=== PATIENT | female | born 1980 | race Caucasian/White ===

== ENCOUNTER 2020-03-21 18:56 | Emergency (ER) | payer BC, SELFPAY ==
[2020-03-21 19:08] VITALS: BP 131/60; PULSE 79; RESP 18; TEMP 36.6; O2SAT 100; BMI 37.2
[2020-03-21 19:36] LABS: Glucose, Whole Blood 421 mg/dL (60-115)
--- NOTE | 2020-03-21 19:44 | ED_ITS ---
HPI - General Adult General Chief complaint: General Medical Stated complaint: high blood sugar Time Seen by Provider: 03/21/20 19:34 Source: patient Mode of arrival: ambulatory Limitations: language barrier (Yoruba-speaking) History of Present Illness HPI narrative: Patient comes to the emergency room complaining of high blood sugar. Patient states she is on a new medication, she has not taking it because she states that it makes her blood sugar go higher than usual. Patient states earlier today she had dizziness, headache, blurry vision, at this moment patient states the dizziness and blurry vision resolved, still complaining of a mild headache. Related Data Previous Rx's Medication Instructions Recorded glimepiride 4 mg PO DAILY #30 tab 03/21/20 Allergies Allergy/AdvReac Type Severity Reaction Status Date / Time No Known Allergies Allergy Verified 03/21/20 19:11 Review of Systems Review of Systems: Constitutional : No Weight loss, No Fever, No Chills, No Night Sweats, No Fatigue, No Malaise ENT/Mouth : No Hearing loss, No Ear Pain, No Nasal Congestion, No Sinus Pain, No Hoarseness, No sore throat, No Rhinorrhea, No Swallowing Difficulty Eyes: No Eye Pain, No Swelling, No Redness, No Foreign Body, No Discharge, earlier today complaining of blurry vision Cardiovascular : No Chest Pain, No SOB, No Dyspnea on Exertion, No Orthopnea, No Edema, No Palpitations Respiratory : No Cough, No Sputum, No Wheezing, No Smoke Exposure, No Dyspnea Gastrointestinal : No Nausea, No Vomiting, No Diarrhea, No Constipation, No abdominal Pain, No Hematochezia, No Melena Genitourinary : no irregular bleeding, No Dysuria, No Urinary Frequency, No Hematuria, No Urinary Incontinence, No Urgency, No Flank Pain, No Urinary Flow Changes, No Hesitancy Musculoskeletal : No joint pain, No Myalgias, No Joint Swelling Skin : No Skin Lesions, No rash Neuro : No Weakness, No Numbness, No Paresthesias, No Loss of Consciousness, mild headache, mild dizziness which resolved Psych : No Anxiety/Panic, No Depression, No SI/HI/AH/VH, No Social Issues, Heme/Lymph: No Bruising, No Bleeding,No Lymphadenopathy Endocrine : No Polyuria, No Polydipsia, No Temperature Intolerance FOR[facility] Past Medical History Medical History (Updated 03/21/20 @ 21:54 by Maribell Nettles MD) delivery delivered Diabetes High cholesterol Social History Social History Alcohol intake: never Smoked in Last 30 Days: No Use of substances other than those prescribed or required for medical reasons: No Advance Directives: No Advance Directives Information Provided: Yes Physical Exam Vital Signs: Vital Signs: Vital Signs Temp Pulse Resp BP Pulse Ox 03/21/20 21:37 98.6 F 64 18 118/77 99 03/21/20 20:16 98.3 F 66 18 109/60 99 03/21/20 19:08 98 F 79 18 131/60 100 Body Mass Index 37.2 Appearance: Alert. Oriented X3. No acute distress. Eyes: Pupils equal, round and reactive to light. ENT: Pharynx normal. Neck: Normal inspection. Neck supple. No lymph nodes noted. No crepitus CVS: Normal heart rate and rhythm. Pulses normal. Normal S1 and S2 Respiratory: No respiratory distress. Breath sounds normal. No Wheezing. No ral es Abdomen: Soft and nontender. No rigidity. No distention. good BS x4 Skin: Skin warm and dry. Normal skin color. Normal skin turgor. Extremities: No lower extremity edema. No lower extremity edema. No Lacerations. No Rash Neuro: Oriented X 3. No motor deficit. No sensory deficit. Moving all extermities. No slurred speech. Course Course Course Narrative: Patient's blood glucose improved to the 200s, patient's headache improved but still requesting a 2nd medication, ibuprofen was provided. Patient's potassium was 3.2, patient was given p.o. potassium. Patient will follow-up with her primary care physician. Patient states that she is supposed to be taking glimepiride 4 mg tablet oral daily, patient recently moved from [place] and does not have a primary care physician. Patient ran out of her medication a few days ago. Medical Decision Making Lab Data Result diagrams: 03/21/20 20:09 03/21/20 20:43 Labs: Lab Results 03/21/20 03/21/20 03/21/20 Range/Units 19:32 20:09 20:09 WBC (4.8-10.8) X10*3/uL RBC (4.20-5.50) X10*6/uL Hgb (12.0-16.0) g/dl Hct (37-47) % MCV (80-98) fL MCH (27.0-33.0) pg MCHC (31.0-35.0) g/dl RDW (11.0-16.0) % Plt Count (160-400) X10*3/uL MPV (9.4-12.3) fL Immature Gran % (Auto) (0.0-0.4) % Neut % (Auto) (45-73) % Lymph % (Auto) (20-40) % [place] % (Auto) (2-11) % Eos % (Auto) (0-4) % Baso % (Auto) (0-2) % Lymph # (Auto) (1.2-4.9) X10*3/uL [place] # (Auto) (0.1-1.2) X10*3/uL Eos # (Auto) (0.0-0.4) X10*3/uL Baso # (Auto) (0.0-0.2) X10*3/uL Abs Immat Gran (auto) (0.00-0.03) X10*3/uL Absolute Neuts (auto) (2.0-8.3) X10*3/uL Absolute Nucleated RBC (0.0-0.012) X10*3/uL Nucleated RBC % (auto) (0.0-0.2) /100WBC Sodium Potassium Chloride Carbon Dioxide Anion Gap BUN Creatinine Estim Creat Clear Calc Estimated GFR POC Glucose 421 H* (60-115) mg/dL Random Glucose Calcium Urine Color Urine Appearance Urine pH (5.0-8.0) Ur Specific [place] (1.005-1.025) Urine Protein (NEG-TRACE) MG/DL Urine Glucose (UA) (NEG) MG/DL Urine Ketones (NEG) MG/DL Urine Blood (NEG) Urine Nitrite (NEG) Ur Leukocyte Esterase (NEG) Urine RBC (0) /HPF Urine WBC (0-4) /HPF Ur Squamous Epith Cells /LPF Urine Bacteria /LPF Urine Test NEGATIVE (NEGATIVE) Acetone, Qual Cancelled 03/21/20 03/21/20 03/21/20 Range/Units 20:09 20:09 20:09 WBC 12.7 H (4.8-10.8) X10*3/uL RBC 4.50 (4.20-5.50) X10*6/uL Hgb 13.5 (12.0-16.0) g/dl Hct 40.0 (37-47) % MCV 88.9 (80-98) fL MCH 30.0 (27.0-33.0) pg MCHC 33.8 (31.0-35.0) g/dl RDW 12.4 (11.0-16.0) % Plt Count 311 (160-400) X10*3/uL MPV 11.4 (9.4-12.3) fL Immature Gran % (Auto) 0.3 (0.0-0.4) % Neut % (Auto) 71.6 (45-73) % Lymph % (Auto) 20.5 (20-40) % [place] % (Auto) 5.5 (2-11) % Eos % (Auto) 1.9 (0-4) % Baso % (Auto) 0.2 (0-2) % Lymph # (Auto) 2.6 (1.2-4.9) X10*3/uL [place] # (Auto) 0.7 (0.1-1.2) X10*3/uL Eos # (Auto) 0.2 (0.0-0.4) X10*3/uL Baso # (Auto) 0.0 (0.0-0.2) X10*3/uL Abs Immat Gran (auto) 0.04 H (0.00-0.03) X10*3/uL Absolute Neuts (auto) 9.1 H (2.0-8.3) X10*3/uL Absolute Nucleated RBC 0.000 (0.0-0.012) X10*3/uL Nucleated RBC % (auto) 0.0 (0.0-0.2) /100WBC Sodium Cancelled Potassium Cancelled Chloride Cancelled Carbon Dioxide Cancelled Anion Gap Cancelled BUN Cancelled Creatinine Cancelled Estim Creat Clear Calc Cancelled Estimated GFR Cancelled POC Glucose (60-115) mg/dL Random Glucose Cancelled Calcium Cancelled Urine Color YELLOW Urine Appearance CLEAR Urine pH 5.5 (5.0-8.0) Ur Specific [place] 1.015 (1.005-1.025) Urine Protein NEG (NEG-TRACE) MG/DL Urine Glucose (UA) >=1000 H (NEG) MG/DL Urine Ketones NEG (NEG) MG/DL Urine Blood NEG (NEG) Urine Nitrite NEG (NEG) Ur Leukocyte Esterase NEG (NEG) Urine RBC 0 (0) /HPF Urine WBC 0 (0-4) /HPF Ur Squamous Epith Cells TRACE /LPF Urine Bacteria NONE /LPF Urine Test (NEGATIVE) Acetone, Qual 03/21/20 03/21/20 03/21/20 Range/Units 20:36 20:43 20:43 WBC (4.8-10.8) X10*3/uL RBC (4.20-5.50) X10*6/uL Hgb (12.0-16.0) g/dl Hct (37-47) % MCV (80-98) fL MCH (27.0-33.0) pg MCHC (31.0-35.0) g/dl RDW (11.0-16.0) % Plt Count (160-400) X10*3/uL MPV (9.4-12.3) fL Immature Gran % (Auto) (0.0-0.4) % Neut % (Auto) (45-73) % Lymph % (Auto) (20-40) % [place] % (Auto) (2-11) % Eos % (Auto) (0-4) % Baso % (Auto) (0-2) % Lymph # (Auto) (1.2-4.9) X10*3/uL [place] # (Auto) (0.1-1.2) X10*3/uL Eos # (Auto) (0.0-0.4) X10*3/uL Baso # (Auto) (0.0-0.2) X10*3/uL Abs Immat Gran (auto) (0.00-0.03) X10*3/uL Absolute Neuts (auto) (2.0-8.3) X10*3/uL Absolute Nucleated RBC (0.0-0.012) X10*3/uL Nucleated RBC % (auto) (0.0-0.2) /100WBC Sodium 138 Potassium 3.2 L Chloride 103 Carbon Dioxide 28 Anion Gap 10 L BUN 9 Creatinine 0.68 Estim Creat Clear Calc 121.9 Estimated GFR > 60 POC Glucose 249 H (60-115) mg/dL Random Glucose 251 H Calcium 7.9 L Urine Color Urine Appearance Urine pH (5.0-8.0) Ur Specific [place] (1.005-1.025) Urine Protein (NEG-TRACE) MG/DL Urine Glucose (UA) (NEG) MG/DL Urine Ketones (NEG) MG/DL Urine Blood (NEG) Urine Nitrite (NEG) Ur Leukocyte Esterase (NEG) Urine RBC (0) /HPF Urine WBC (0-4) /HPF Ur Squamous Epith Cells /LPF Urine Bacteria /LPF Urine Test (NEGATIVE) Acetone, Qual Negative Discharge Plan Discharge Clinical Impression: Acute hyperglycemia Patient Disposition: Home, Self-Care Instructions: Diabetic Hyperglycemia (ED), Diabetes and Exercise (ED) Additional Instructions: Please follow-up with your new primary care physician, please call to schedule an appointment Prescriptions: New glimepiride 4 mg tablet 4 mg PO DAILY Qty: 30 RF: 0
[2020-03-21] MEDS: Insulin Regular, Human 100 UNIT/ML 3 ML VIAL 10 UNIT IVPUSH (20:06)
[2020-03-21] MEDS: Acetaminophen 325 MG TABLET 650 MG PO (20:07)
[2020-03-21] MEDS: 0.9 % Sodium Chloride 1,000 ML 999 ML IVCONT (20:07)
[2020-03-21 20:16] VITALS: BP 109/60; PULSE 66; RESP 18; TEMP 36.8; O2SAT 99
[2020-03-21 20:23] LABS: MANUAL DIFF FLAG NO
[2020-03-21 20:27] LABS: Basophils Percent Auto 0.2 % (0-2); Eosinophils Absolute Auto 0.2 X10*3/uL (0.0-0.4); Eosinophils Percent Auto 1.9 % (0-4); Hemoglobin 13.5 g/dl (12.0-16.0); Imm Gran Abs Auto 0.04 X10*3/uL (0.00-0.03); Imm Gran Pct Auto 0.3 % (0.0-0.4); Lymphocytes Absolute Auto 2.6 X10*3/uL (1.2-4.9); Lymphocytes Percent Auto 20.5 % (20-40); Mean Corpuscular HGB Conc 33.8 g/dl (31.0-35.0); Mean Corpuscular Volume 88.9 fL (80-98); Mean Platelet Volume 11.4 fL (9.4-12.3); Monocytes Absolute Auto 0.7 X10*3/uL (0.1-1.2); Monocytes Percent Auto 5.5 % (2-11); Neutrophils Absolute Auto 9.1 X10*3/uL (2.0-8.3); Neutrophils Percent Auto 71.6 % (45-73); Platelet Count 311 X10*3/uL (160-400); Red Cell Distribution Width 12.4 % (11.0-16.0); White Blood Count 12.7 X10*3/uL (4.8-10.8)
[2020-03-21 20:40] LABS: Glucose, Whole Blood 249 mg/dL (60-115)
[2020-03-21 20:41] LABS: Glucose Urine UA >=1000 MG/DL (NEG); Leukocyte Esterase Urine NEG (NEG); Nitrite Urine NEG (NEG); PH 5.5 (5.0-8.0); Specific Gravity - Urine 1.015 (1.005-1.025); Urine Blood NEG (NEG); Urine Ketones NEG (NEG); Urine Protein NEG (NEG-TRACE)
[2020-03-21 20:51] LABS: Color Urine YELLOW
[2020-03-21 20:52] LABS: Appearance Urine CLEAR
[2020-03-21 20:53] LABS: UPreg QC Valid YES; Urine Pregnancy NEGATIVE (NEGATIVE)
[2020-03-21 21:05] LABS: Acetone, serum QL Negative (Negative)
[2020-03-21 21:14] LABS: RBC Urine 0 /HPF (0); Squamous Epithelial Cell Urine TRACE /LPF; WBC Urine 0 /HPF (0-4)
[2020-03-21 21:16] LABS: Anion Gap 10 (12-20); Blood Urea Nitrogen 9 mg/dL (9-16); Calcium 7.9 mg/dL (8.4-10.2); Carbon Dioxide 28 mmol/L (22-29); Chloride 103 mmol/L (96-108); Creatinine Clr Calc Pharmacy 121.9; Estimated Glomerular Filt Rate > 60; Glucose Random 251 mg/dL (60-115); Potassium 3.2 mmol/l (3.3-5.1); Sodium 138 mmol/L (135-145)
[2020-03-21 21:37] VITALS: BP 118/77; PULSE 64; RESP 18; TEMP 37; O2SAT 99
[2020-03-21] MEDS: Ibuprofen 400 MG TABLET 600 MG PO (22:00)
[2020-03-21] MEDS: Potassium Chloride Packet 20 MEQ PACKET 40 MEQ PO (22:00)
== END 2020-03-21 22:01 | disposition home or self-care (01) ==
PROVIDERS: Emergency Provider Emergency Medicine
DX: E11.65 Type 2 diabetes mellitus with hyperglycemia (principal); Z79.899 Other long term (current) drug therapy
CPT/HCPCS: 36415; 80048; 81001; 81025; 82009; 82947; 85025; 96361; 96374; 99284

== ENCOUNTER 2020-04-04 16:40 | Emergency (ER) | payer BC, SELFPAY ==
--- NOTE | 2020-04-04 18:06 | ED_ITS ---
HPI - URI/Sore Throat General Chief Complaint: General Medical Stated Complaint: covid symptoms Time Seen by Provider: 04/04/20 17:30 Source: patient Mode of arrival: ambulatory Limitations: language barrier History of Present Illness HPI Narrative: 39 y/o female presenting with headaches, nausea, muscle aches, mild sore throat, recent diarrhea for 5 days and uncontrolled glucose for the last 2 weeks. She was seen here on 03/21 for symptomatic hyperglycemia with glucose 400's. She was not taking her glimepiride 4mg because she recently moved here from [place] and does not have a PCP here. She reports compliance since last ED visit but her sugars have not improved. She states they are anythere from 160-450. Related Data Previous Rx's Medication Instructions Recorded glimepiride 4 mg PO DAILY #30 tab 03/21/20 Allergies Allergy/AdvReac Type Severity Reaction Status Date / Time No Known Allergies Allergy Verified 03/21/20 19:11 Review of Systems Review of Systems: Constitutional: No Fever, No Chills ENT/Mouth: No sore throat, No Rhinorrhea, No Swallowing Difficulty Eyes: No Eye Pain, No Swelling, No Redness Cardiovascular: No Chest Pain, No SOB, No Orthopnea, No Edema Respiratory: No Cough, No Sputum, No Wheezing, No dyspnea Gastrointestinal: + Nausea, No Vomiting, + Diarrhea, No abdominal Pain Genitourinary: No Dysuria, No Urinary Frequency, No Hematuria Musculoskeletal: No joint pain, + Myalgias Skin: No Skin Lesions, No rash Neuro: No Weakness, No Numbness, No Dizziness, + Headache Psych: No Anxiety/Panic, No Depression Heme/Lymph: No Bruising, No Lymphadenopathy Endocrine: + Polyuria, No Polydipsia PMFSH Past Medical History Attestation statement: The following information was validated with the patient. Medical History delivery delivered Diabetes High cholesterol Social History Social History Alcohol intake: never Advance Directives: No Advance Directives Information Provided: Yes Physical Exam Vital Signs: Vital Signs: Last Vital Signs Temp 96.5 F L 04/04/20 18:19 Pulse 69 04/04/20 18:19 Resp 18 04/04/20 18:19 BP 141/78 H 04/04/20 18:19 Pulse Ox 100 04/04/20 18:19 Body Mass Index 36.3 Appearance: Alert. Oriented X3. No acute distress. Eyes: Pupils equal, round and reactive to light. ENT: Pharynx normal. Neck: Normal inspection. Neck supple. CVS: Normal heart rate and rhythm. Pulses normal. Respiratory: No respiratory distress. Breath sounds normal. Abdomen: Soft and nontender. +BS x4 Skin: Skin warm and dry. Normal skin color. Normal skin turgor. No rashes. Extremities: No lower extremity edema. Neuro: Oriented X 3. No motor deficit. No sensory deficit. Course Course Course Narrative: 39 y/o female presenting with headaches, fatigue, nausea and diarrhea. She states her glucose has been elevated the last 2 weeks. She was seen here on 03/21 - she was noncompliant with her glimpiride due issues with moving here from [place]. She states she has been taking her medication as prescribed. Reevaluation(s) Reevaluation #1: Glucose here is 422 - no anion gap, acetone negative. LFTs normal and no leukocytosis. COVID, influenza and RSV negative. She has been ordered for 5 units SC insulin. Repeat POC pending. She has had a recent diarrhea and symptoms of gastroenteritis or viral infection which likely increased her glucose. This has been ongoing and she is suboptimally controlled. She has no PCP here. She has been given resources to follow up with a Primary Care doctor this week. Reevaluation #2: Glucose improved to 250. Stable for discharge. MDM - URI/Sore Throat Lab Data Result diagrams: 04/04/20 20:03 04/04/20 20:03 Labs: Lab Results 04/04/20 04/04/20 04/04/20 Range/Units 20:03 20:03 20:03 WBC 8.2 (4.8-10.8) X10*3/uL RBC 4.46 (4.20-5.50) X10*6/uL Hgb 13.3 (12.0-16.0) g/dl Hct 40.4 (37-47) % MCV 90.6 (80-98) fL MCH 29.8 (27.0-33.0) pg MCHC 32.9 (31.0-35.0) g/dl RDW 12.5 (11.0-16.0) % Plt Count 281 (160-400) X10*3/uL MPV 11.2 (9.4-12.3) fL Immature Gran % (Auto) 0.2 (0.0-0.4) % Neut % (Auto) 58.4 (45-73) % Lymph % (Auto) 30.7 (20-40) % [place] % (Auto) 6.7 (2-11) % Eos % (Auto) 3.6 (0-4) % Baso % (Auto) 0.4 (0-2) % Lymph # (Auto) 2.5 (1.2-4.9) X10*3/uL [place] # (Auto) 0.6 (0.1-1.2) X10*3/uL Eos # (Auto) 0.3 (0.0-0.4) X10*3/uL Baso # (Auto) 0.0 (0.0-0.2) X10*3/uL Abs Immat Gran (auto) 0.02 (0.00-0.03) X10*3/uL Absolute Neuts (auto) 4.8 (2.0-8.3) X10*3/uL Absolute Nucleated RBC 0.000 (0.0-0.012) X10*3/uL Nucleated RBC % (auto) 0.0 (0.0-0.2) /100WBC Sodium 136 (135-145) mmol/L Potassium 4.0 D (3.3-5.1) mmol/l Chloride 102 (96-108) mmol/L Carbon Dioxide 24 (22-29) mmol/L Anion Gap 14 (12-20) BUN 15 D (9-16) mg/dL Creatinine 0.81 (0.5-1.4) mg/dL Estim Creat Clear Calc 101.0 Estimated GFR > 60 Random Glucose 422 H* (60-115) mg/dL Calcium 9.1 D (8.4-10.2) mg/dL Total Bilirubin 0.4 (0.0-1.0) mg/dL Direct Bilirubin < 0.2 (0.0-0.5) mg/dL AST 10 (5-31) U/L ALT 16 (0-31) U/L Alkaline Phosphatase 112 (39-117) U/L Total Protein 6.9 (6.5-8.0) g/dL Albumin 3.9 (3.5-5.0) g/dL Acetone, Qual Negative (Negative) Coronavirus (PCR) NEGATIVE (Negative) Influenza Type A (PCR) NEGATIVE (Negative) Influenza Type B (PCR) NEGATIVE (Negative) RSV RNA Qual (PCR) NEGATIVE (Negative) Discharge Plan Discharge Clinical Impression: Poorly controlled diabetes mellitus, Acute viral syndrome Patient Disposition: Home, Self-Care Instructions: Diabetic Hyperglycemia (ED) Additional Instructions: You were tested for COVID-19, influenza and RSV - ALL WERE NEGATIVE. It is possible you had another mild virus causing your symptoms. You glucose was elevated again today. Your lab work showed no evidence of a diabetic emergency like diabetic ketoacidosis. You need to establish a primary care doctor for further management of your diabetes!!! You need to limit your carbohydrate and sugar intake. Drink plenty of water. No soda or juice. Continue taking your glimepiride 4 mg every day. If you develop nausea, vomiting, abdominal pain call 911 or come back to the ER for further evaluation. Prescriptions: No Action glimepiride 4 mg tablet 4 mg PO DAILY Qty: 30 RF: 0 Stand Alone Forms: Work/School Release Print Language: Citizen Of [place]
[2020-04-04 18:19] VITALS: BP 141/78; PULSE 69; RESP 18; TEMP 35.8; O2SAT 100; BMI 36.3
[2020-04-04 20:32] LABS: MANUAL DIFF FLAG NO
[2020-04-04 20:37] LABS: Basophils Percent Auto 0.4 % (0-2); Eosinophils Absolute Auto 0.3 X10*3/uL (0.0-0.4); Eosinophils Percent Auto 3.6 % (0-4); Hematocrit 40.4 % (37-47); Hemoglobin 13.3 g/dl (12.0-16.0); Imm Gran Abs Auto 0.02 X10*3/uL (0.00-0.03); Imm Gran Pct Auto 0.2 % (0.0-0.4); Lymphocytes Absolute Auto 2.5 X10*3/uL (1.2-4.9); Lymphocytes Percent Auto 30.7 % (20-40); Mean Corpuscular HGB Conc 32.9 g/dl (31.0-35.0); Mean Corpuscular Hemoglobin 29.8 pg (27.0-33.0); Mean Corpuscular Volume 90.6 fL (80-98); Mean Platelet Volume 11.2 fL (9.4-12.3); Monocytes Absolute Auto 0.6 X10*3/uL (0.1-1.2); Monocytes Percent Auto 6.7 % (2-11); Neutrophils Absolute Auto 4.8 X10*3/uL (2.0-8.3); Neutrophils Percent Auto 58.4 % (45-73); Platelet Count 281 X10*3/uL (160-400); Red Blood Count 4.46 X10*6/uL (4.20-5.50); Red Cell Distribution Width 12.5 % (11.0-16.0); White Blood Count 8.2 X10*3/uL (4.8-10.8)
[2020-04-04 20:58] LABS: Acetone, serum QL Negative (Negative)
[2020-04-04 21:10] LABS: Influenza A PCR NEGATIVE (Negative); Influenza B PCR NEGATIVE (Negative); Resp Syncy Virus RNA Qual PCR NEGATIVE (Negative); SARS COV2 PCR INHOUSE NEGATIVE (Negative)
[2020-04-04 21:12] LABS: Alanine Aminotransferase 16 U/L (0-31); Albumin Level 3.9 g/dL (3.5-5.0); Alkaline Phosphatase 112 U/L (39-117); Anion Gap 14 (12-20); Aspartate Amino Transferase 10 U/L (5-31); Bilirubin Direct < 0.2 mg/dL (0.0-0.5); Bilirubin Total 0.4 mg/dL (0.0-1.0); Blood Urea Nitrogen 15 mg/dL (9-16); Calcium 9.1 mg/dL (8.4-10.2); Carbon Dioxide 24 mmol/L (22-29); Chloride 102 mmol/L (96-108); Estimated Glomerular Filt Rate > 60; Glucose Random 422 mg/dL (60-115); Sodium 136 mmol/L (135-145); Total Protein 6.9 g/dL (6.5-8.0)
[2020-04-04] MEDS: Insulin Lispro 100 UNIT/ML 3 ML VIAL SUBCUT (21:59)
[2020-04-04 23:07] LABS: Glucose, Whole Blood 253 mg/dL (60-115)
== END 2020-04-04 23:21 | disposition home or self-care (01) ==
PROVIDERS: Physician Assistant; Emergency Provider Internal Medicine
DX: B34.9 Viral infection, unspecified (principal); M79.10 Myalgia, unspecified site; E11.65 Type 2 diabetes mellitus with hyperglycemia; Z20.828 Contact with and (suspected) exposure to other viral communicable diseases; Z79.899 Other long term (current) drug therapy
CPT/HCPCS: 0241U; 36415; 80048; 80076; 82009; 82947; 85025; 99283

== ENCOUNTER 2020-11-14 20:44 | Emergency (ER) | payer OTHER, SELFPAY ==
--- NOTE | ~2020-11-14 | XR_ITS ---
EXAMINATION: XR CHEST CLINICAL INFORMATION: Cough COMPARISON: None TECHNIQUE: 2 views of the chest were obtained. FINDINGS: No significant abnormality is noted involving the heart, lungs, mediastinum, bony thorax or soft tissues. XR/XR chest 2V IMPRESSION: Unremarkable examination.
[2020-11-14 21:28] VITALS: BP 122/66; PULSE 63; RESP 18; TEMP 36.6; O2SAT 100; BMI 37.0
[2020-11-14 22:31] LABS: Strep A Nucleic Acid Negative (Negative)
[2020-11-14 22:38] LABS: COVID-19 Test Negative (Negative); IDNOW Serial# 9DD0AD1C
--- NOTE | 2020-11-14 23:54 | ED_ITS ---
HPI - General Adult General Chief complaint: General Medical Stated complaint: cough, sore throat Time Seen by Provider: 11/14/20 23:52 Source: patient Mode of arrival: ambulatory Limitations: language barrier ( help desk supervisor used) History of Present Illness HPI narrative: Patient is a 40-year-old female with a past medical history of DM2, hypelipidemia with multiple complaints. patient states for the last few d ays she has had cold fingers, tingling up her bilateral arms, sore throat, feels like something is stuck in her throat, a little short of breath like she might have bronchitis , abdominal pain all over , diarrhea multiple times per day for the last 3 days but has not an episode since she has been in the emergency department. she denies fevers or chills nausea or vomiting. denies any changes in her bladder or bowels. Related Data Previous Rx's Medication Instructions Recorded glimepiride 4 mg PO DAILY #30 tab 03/21/20 glimepiride 4 mg PO QAM #30 tab 11/15/20 Allergies Allergy/AdvReac Type Severity Reaction Status Date / Time No Known Allergies Allergy Verified 11/14/20 21:27 Review of Systems Review of Systems: Yes all other systems are reviewed and are negative [facility] Past Medical History Medical History delivery delivered COVID-19 Diabetes Hernia High cholesterol Social History Social History Alcohol intake: never Advance Directives: No Advance Directives Information Provided: No Patient : No Physical Exam Vital Signs: Vital Signs: Last Vital Signs Temp 96.9 F 11/15/20 00:11 Pulse 57 11/15/20 00:11 Resp 18 11/15/20 00:11 BP 127/78 11/15/20 00:11 Pulse Ox 99 11/15/20 00:11 Body Mass Index 37.0 Const: General: cooperative, healthy appearing, comfortable, no acute distress and well developed Orientation/consciousness: patient oriented x3 Limitations: no limitations HENMT: Head: Yes normal to inspection Eyes: General: appearance normal, both eyes and all related structures Neck: Neck: Yes normal visual inspection and Yes full ROM Resp: Effort & Inspection: normal respiratory effort and able to speak in complete sentences Auscultation: clear to auscultation bilaterally Cardio: Rate: regular rate Rhythm: regular rhythm Heart sounds: normal S1 and S2 GI: Inspection: Yes normal to inspection Palpation (GI): Soft to palpation and Tenderness to palpation present (GI) in the epigastrum and suprapubicly Skin: General skin exam: no rashes or lesions noted Neuro: General: patient oriented x3 Extrem: General: Yes normal to inspection Course Course Course Narrative: Patient is a 40-year-old female with a past medical history of DM2, hypelipidemia with complaints of cold fingers, cough and associated chest pain, abdominal pain with multiple episodes of diarrhea over the last few days. Physical exam remarkable for tenderness to palpation of epigastric and suprapubic areas. Will get labs, troponin, EKG, UA and chest x-ray and likely discharge home. Reevaluation(s) Reevaluation #1: patient's glucose is slightly elevated at 385, patient states she has been taking her diabetes medications. Will give 1 L of LR push oral fluids and recheck glucose, likely discharge home as all other labs are normal, chest x-ray negative, EKG negative, UA negative. Time: 00:45 Reevaluation #2: Had an extensive conversation with the help desk supervisor and the patient about the patient's diabetes medications. Patient moved here to [facility] last year from [place] and stated she had some medication with her, glimepiride 4 mg. however and he emergency department note from March of 2020 states that the patient did not have any more of this medication and did not have a PCP so she was given a one-month supply of medication. Upon speaking of the patient, she states she does have medication but is unclear who she is obtaining it from because she also states she has no primary care doctor. I told her about [facility] and provided her with the phone number and I told her I would send a 1 month supply of the diabetes medication to her pharmacy but she does need to start taking it tomorrow. She says she understands and she will call for an appointment for a new PCP tomorrow. Time: 01:38 Medical Decision Making Lab Data Lab results reviewed: Yes I reviewed the patient's lab results. Result diagrams: 11/15/20 00:11 11/15/20 00:11 Labs: Lab Results 11/14/20 11/14/20 11/15/20 Range/Units 22:16 22:16 00:11 WBC 10.7 (4.8-10.8) X10*3/uL RBC 4.34 (4.20-5.50) X10*6/uL Hgb 13.3 (12.0-16.0) g/dl Hct 38.9 (37-47) % MCV 89.6 (80-98) fL MCH 30.6 (27.0-33.0) pg MCHC 34.2 (31.0-35.0) g/dl RDW 12.1 (11.0-16.0) % Plt Count 310 (160-400) X10*3/uL MPV 10.9 (9.4-12.3) fL Immature Gran % (Auto) 0.1 (0.0-0.4) % Neut % (Auto) 61.8 (45-73) % Lymph % (Auto) 28.5 (20-40) % [place] % (Auto) 6.2 (2-11) % Eos % (Auto) 3.0 (0-4) % Baso % (Auto) 0.4 (0-2) % Lymph # (Auto) 3.1 (1.2-4.9) X10*3/uL [place] # (Auto) 0.7 (0.1-1.2) X10*3/uL Eos # (Auto) 0.3 (0.0-0.4) X10*3/uL Baso # (Auto) 0.0 (0.0-0.2) X10*3/uL Abs Immat Gran (auto) 0.01 (0.00-0.03) X10*3/uL Absolute Neuts (auto) 6.6 (2.0-8.3) X10*3/uL Absolute Nucleated RBC 0.000 (0.0-0.012) X10*3/uL Nucleated RBC % (auto) 0.0 (0.0-0.2) /100WBC Sodium (135-145) mmol/L Potassium (3.3-5.1) mmol/L Chloride (96-108) mmol/L Carbon Dioxide (22-29) mmol/L Anion Gap (12-20) BUN (9-16) mg/dL Creatinine (0.5-1.4) mg/dL Estim Creat Clear Calc Estimated GFR Random Glucose (60-115) mg/dL Calcium (8.4-10.2) mg/dL Total Bilirubin (0.0-1.0) mg/dL AST (5-31) U/L ALT (0-31) U/L Alkaline Phosphatase (39-117) U/L Troponin I High Sens (<3.5-17.0) ng/L Total Protein (6.5-8.0) g/dL Albumin (3.5-5.0) g/dL Lipase (8-78) U/L Urine Color Urine Appearance Urine pH (5.0-8.0) Ur Specific [place] (1.005-1.025) Urine Protein (NEG-TRACE) MG/DL Urine Glucose (UA) (NEG) MG/DL Urine Ketones (NEG) MG/DL Urine Blood (NEG) Urine Nitrite (NEG) Ur Leukocyte Esterase (NEG) Urine RBC (0) /HPF Urine WBC (0-4) /HPF Ur Squamous Epith Cells /LPF Urine Bacteria /LPF COVID-19 (SHAWN) Negative (Negative) COVID-19 Clin Com See Note S. pyogenes GrpA REAGAN Negative (Negative) 11/15/20 11/15/20 11/15/20 Range/Units 00:11 00:11 00:11 WBC (4.8-10.8) X10*3/uL RBC (4.20-5.50) X10*6/uL Hgb (12.0-16.0) g/dl Hct (37-47) % MCV (80-98) fL MCH (27.0-33.0) pg MCHC (31.0-35.0) g/dl RDW (11.0-16.0) % Plt Count (160-400) X10*3/uL MPV (9.4-12.3) fL Immature Gran % (Auto) (0.0-0.4) % Neut % (Auto) (45-73) % Lymph % (Auto) (20-40) % [place] % (Auto) (2-11) % Eos % (Auto) (0-4) % Baso % (Auto) (0-2) % Lymph # (Auto) (1.2-4.9) X10*3/uL [place] # (Auto) (0.1-1.2) X10*3/uL Eos # (Auto) (0.0-0.4) X10*3/uL Baso # (Auto) (0.0-0.2) X10*3/uL Abs Immat Gran (auto) (0.00-0.03) X10*3/uL Absolute Neuts (auto) (2.0-8.3) X10*3/uL Absolute Nucleated RBC (0.0-0.012) X10*3/uL Nucleated RBC % (auto) (0.0-0.2) /100WBC Sodium 136 (135-145) mmol/L Potassium 4.1 (3.3-5.1) mmol/L Chloride 102 (96-108) mmol/L Carbon Dioxide 24 (22-29) mmol/L Anion Gap 14 (12-20) BUN 14 (9-16) mg/dL Creatinine 0.81 (0.5-1.4) mg/dL Estim Creat Clear Calc 101.1 Estimated GFR > 60 Random Glucose 385 H* (60-115) mg/dL Calcium 9.7 D (8.4-10.2) mg/dL Total Bilirubin 0.2 (0.0-1.0) mg/dL AST 11 (5-31) U/L ALT 13 (0-31) U/L Alkaline Phosphatase 117 (39-117) U/L Troponin I High Sens < 3.5 (<3.5-17.0) ng/L Total Protein 7.2 (6.5-8.0) g/dL Albumin 4.1 (3.5-5.0) g/dL Lipase 14 (8-78) U/L Urine Color YELLOW Urine Appearance CLEAR Urine pH 6.0 (5.0-8.0) Ur Specific [place] 1.015 (1.005-1.025) Urine Protein NEG (NEG-TRACE) MG/DL Urine Glucose (UA) >=1000 H (NEG) MG/DL Urine Ketones NEG (NEG) MG/DL Urine Blood NEG (NEG) Urine Nitrite NEG (NEG) Ur Leukocyte Esterase NEG (NEG) Urine RBC 0-2 (0) /HPF Urine WBC 0-2 (0-4) /HPF Ur Squamous Epith Cells TRACE /LPF Urine Bacteria NONE /LPF COVID-19 (SHAWN) (Negative) COVID-19 Clin Com S. pyogenes GrpA REAGAN (Negative) Imaging Data Chest x-ray: Attestation: I personally reviewed and interpreted this imaging study as follows: Radiologist's impression: [address] [id number] ReportSigned Patient: Ron ZuritaR#: [id number]: 1980Acct:[id number]/Sex: 40 / FADM Date: 11/14/20Loc: [address]: Ordering Physician: Paty Bonilla PA-C Date of Service: 11/14/20 Procedure(s): XR chest 2V Accession Number(s): [id number] cc: Paty Bonilla PA-C~ EXAMINATION: XR CHEST CLINICAL INFORMATION: Cough COMPARISON: None TECHNIQUE: 2 views of the chest were obtained. FINDINGS: No significant abnormality is noted involving the heart, lungs, mediastinum, bony thorax or soft tissues. XR/XR chest 2V IMPRESSION: Unremarkable examination. Dictated By:MATT ARIAS MDSigned By:<Electronically signed by MATT ARIAS MD in OV>11/15/20 0010 DD/ 2353TD/TT: Dolly Pusher: TRINITY ECG Data Attestation: I personally reviewed and interpreted this ECG as follows: Interpretation: [address] [id number] ReportDraft Patient: Ron ZuritaR#: [id number]: 1980Acct:[id number]/Sex: 40 / FADM Date: 11/14/20Loc: [address] Dr: Ordering Physician: Paty Bonilla PA-C Date of Service: 11/14/20 Procedure(s): ECG 12 lead EKG Accession Number(s): [id number] cc: ~ Test Reason : COUGH Blood Pressure : / mmHG Vent. Rate : 056 BPM Atrial Rate : 056 BPM P-R Int : 148 ms QRS Dur : 094 ms QT Int : 416 ms P-R-T Axes : 052 -12 015 degrees QTc Int : 401 ms Sinus bradycardia Incomplete right bundle branch block Borderline ECG No previous ECGs available Referred By: Paty Bonilla Electronically Signed By: Dictated By:Signed By: DD/ TD/TT: 11/15/205Transcriptionist: Discharge Plan Discharge Clinical Impression: Acute hyperglycemia Patient Disposition: Home, Self-Care Instructions: Type 2 Diabetes Management for Adults (ED) Additional Instructions: Today in the emergency department, all of your labs were within normal limits, your urine was negative for infection your chest x-ray was negative for acute disease your vital signs were all within normal limits. If the only abnormality was that your glucose was slightly elevated at 385 mg/dL. we gave you fluids to bring your blood sugar down. I have given you the phone number for [facility] to obtain a primary care doctor. Is very important that you follow-up with the primary care doctor to address a change in your diabetes medications. I have also sent a prescription to your pharmacy for 30 days of your existing diabetes medication. Prescriptions: New glimepiride 4 mg tablet 4 mg PO QAM Qty: 30 RF: 0 No Action glimepiride 4 mg tablet 4 mg PO DAILY Qty: 30 RF: 0 Print Language: Greek
[2020-11-15 00:11] VITALS: BP 127/78; PULSE 57; RESP 18; TEMP 36.1; O2SAT 99
[2020-11-15 00:18] LABS: MANUAL DIFF FLAG NO
[2020-11-15 00:19] LABS: Basophils Percent Auto 0.4 % (0-2); Eosinophils Absolute Auto 0.3 X10*3/uL (0.0-0.4); Hematocrit 38.9 % (37-47); Hemoglobin 13.3 g/dl (12.0-16.0); Imm Gran Abs Auto 0.01 X10*3/uL (0.00-0.03); Imm Gran Pct Auto 0.1 % (0.0-0.4); Lymphocytes Absolute Auto 3.1 X10*3/uL (1.2-4.9); Lymphocytes Percent Auto 28.5 % (20-40); Mean Corpuscular HGB Conc 34.2 g/dl (31.0-35.0); Mean Corpuscular Hemoglobin 30.6 pg (27.0-33.0); Mean Corpuscular Volume 89.6 fL (80-98); Mean Platelet Volume 10.9 fL (9.4-12.3); Monocytes Absolute Auto 0.7 X10*3/uL (0.1-1.2); Monocytes Percent Auto 6.2 % (2-11); Neutrophils Absolute Auto 6.6 X10*3/uL (2.0-8.3); Neutrophils Percent Auto 61.8 % (45-73); Platelet Count 310 X10*3/uL (160-400); Red Blood Count 4.34 X10*6/uL (4.20-5.50); Red Cell Distribution Width 12.1 % (11.0-16.0); White Blood Count 10.7 X10*3/uL (4.8-10.8)
[2020-11-15 00:39] LABS: Glucose Urine UA >=1000 MG/DL (NEG); Leukocyte Esterase Urine NEG (NEG); Nitrite Urine NEG (NEG); Specific Gravity - Urine 1.015 (1.005-1.025); Urine Blood NEG (NEG); Urine Ketones NEG (NEG); Urine Protein NEG (NEG-TRACE)
[2020-11-15 00:40] LABS: Appearance Urine CLEAR; Color Urine YELLOW
[2020-11-15 00:44] LABS: Troponin-I High Sensitivity < 3.5 ng/L (<3.5-17.0)
[2020-11-15 00:45] LABS: Alanine Aminotransferase 13 U/L (0-31); Albumin Level 4.1 g/dL (3.5-5.0); Alkaline Phosphatase 117 U/L (39-117); Anion Gap 14 (12-20); Aspartate Amino Transferase 11 U/L (5-31); Bilirubin Total 0.2 mg/dL (0.0-1.0); Blood Urea Nitrogen 14 mg/dL (9-16); Calcium 9.7 mg/dL (8.4-10.2); Carbon Dioxide 24 mmol/L (22-29); Chloride 102 mmol/L (96-108); Creatinine Clr Calc Pharmacy 101.1; Estimated Glomerular Filt Rate > 60; Glucose Random 385 mg/dL (60-115); Lipase 14 U/L (8-78); Potassium 4.1 mmol/L (3.3-5.1); Sodium 136 mmol/L (135-145); Total Protein 7.2 g/dL (6.5-8.0)
[2020-11-15 00:52] LABS: RBC Urine 0-2 /HPF (0); Squamous Epithelial Cell Urine TRACE /LPF; WBC Urine 0-2 /HPF (0-4)
[2020-11-15] MEDS: Lactated Ringers 1,000 ML 999 ML IV (01:17)
[2020-11-15 01:44] LABS: Glucose, Whole Blood 324 mg/dL (60-115)
[2020-11-15 02:35] VITALS: BP 118/79; PULSE 74; RESP 18; O2SAT 97
[2020-11-15 02:37] LABS: Glucose, Whole Blood 235 mg/dL (60-115)
== END 2020-11-15 03:00 | disposition home or self-care (01) ==
PROVIDERS: Physician Assistant; Emergency Provider Internal Medicine
DX: E11.65 Type 2 diabetes mellitus with hyperglycemia (principal); R19.7 Diarrhea, unspecified; Z79.84 Long term (current) use of oral hypoglycemic drugs; Z20.822 Contact with and (suspected) exposure to COVID-19
CPT/HCPCS: 36415; 71046; 80053; 81001; 82947; 83690; 84484; 85025; 87635; 87651; 93005; 96360; 99284

== ENCOUNTER 2024-08-31 15:05 | Emergency (ER) | payer MEDICAID, SELFPAY ==
--- NOTE | ~2024-08-31 | XR_ITS ---
CLINICAL HISTORY: pain 1 view abdomen Comparison: None Findings: No pneumoperitoneum or pneumatosis. No abnormal calcifications. No acute fractures. IMPRESSION: Normal bowel gas pattern This document has been electronically signed by: Tracey Patten MD on 08/31/2024 20:02:42
--- NOTE | ~2024-08-31 | XR_ITS ---
CLINICAL HISTORY: pain 3 views lumbar spine Comparison: None Findings: Normal alignment. No acute fractures or dislocation. No significant degenerative change. IMPRESSION: No acute findings. This document has been electronically signed by: Tracey Patten MD on 08/31/2024 20:02:02
[2024-08-31 15:28] VITALS: BP 154/86; PULSE 67; RESP 17; TEMP 36.8; O2SAT 98; BMI 37.2
--- NOTE | 2024-08-31 15:28 | ED_ITS ---
HPI - General Adult General Chief complaint: General Medical Stated complaint: Diabetic Head Pain Time Seen by Provider: 08/31/24 17:44 Source: patient Limitations: language barrier History of Present Illness ED Provider: Jaye Conte PA-C HPI narrative: 44-year-old female with a history of morbid obesity, diabetes presents with multiple complaints. Patient states she has noted her blood sugars to be elevated over the past 3 days. Associated generalized abdominal discomfort, nausea and constipation. Patient had a minimal bowel movement today. Denies abdominal distention or inability to pass flatus. No fevers. Patient also complains of ongoing right sided lumbar pain for months. Patient states her discomfort was precipitated by physical exercise, she woke the next morning with discomfort. Pain originates in right lower back, radiates down the right lower extremity. Associated paresthesia at times. Denies urinary retention, bowel incontinence or weakness of lower extremity. This is the 1st time that the patient is seeking medical attention for her pain. Related Data Previous Rx's ?Medication ?Instructions ?Recorded glimepiride 4 mg tablet 4 mg PO DAILY #30 tabs 03/21/20 glimepiride 4 mg tablet 4 mg PO QAM #30 tabs 11/15/20 glimepiride 4 mg tablet 4 mg PO BID #60 tabs 08/31/24 ketorolac 10 mg tablet 10 mg PO Q6H PRN pain #20 tabs 08/31/24 metformin 1,000 mg tablet 1,000 mg PO BID #60 tabs 08/31/24 methocarbamol 750 mg tablet 1,500 mg (2 x 750 mg) PO Q8H PRN 08/31/24 pain, moderate #20 tabs metoclopramide HCl 10 mg tablet 10 mg PO Q6H PRN nausea and 08/31/24 vomiting #12 tabs Allergies Allergy/AdvReac Type Severity Reaction Status Date / Time No Known Allergies Allergy Verified 08/31/24 15:30 Review of Systems 2 Review of Systems: Yes all other systems are reviewed and are negative Constitutional: Constitutional: Denies fatigue and Denies fever(s) Cardiovascular: Cardiovascular: Denies chest pain and Denies dyspnea Respiratory: Respiratory: Denies cough and Denies dyspnea Gastrointestinal: Gastrointestinal: Reports abdominal pain, Reports constipation, Reports nausea and Denies vomiting Genitourinary: Genitourinary: Denies dysuria Musculoskeletal: Musculoskeletal: Reports back pain, Denies muscle weakness, Denies numbness, Reports radiating pain into limb and Reports tingling Neurologic: Denies numbness and Reports tingling Endocrine: Endocrine: Denies fatigue [facility] Past Medical History Attestation statement: The following information was validated with the patient. Medical History delivery delivered COVID-19 Diabetes Hernia High cholesterol Social History Social History Alcohol intake: never Smoked in Last 30 Days: No Use of substances other than those prescribed or required for medical reasons: No Advance Directives: No Advance Directives Information Provided: No Do you have a plan to hurt others: No Plan Patient : No Physical Exam ED Vital Signs: Vital Signs - 24 hr 08/31/24 15:28 08/31/24 18:00 08/31/24 20:21 Temperature 98.3 F 97.9 F Pulse Rate 67 67 63 Respiratory Rate 17 18 16 Blood Pressure 154/86 H 132/83 137/83 Pulse Oximetry 98 98 98 Oxygen Delivery Method Room Air Room Air Room Air 08/31/24 21:44 Temperature 98.6 F Pulse Rate 70 Respiratory Rate 18 Blood Pressure 115/82 Pulse Oximetry 98 Oxygen Delivery Method Room Air BMI result Body Mass Index 37.2 Const Other: Alert Orientation/consciousness: patient oriented x3 Resp Effort & Inspection: normal respiratory effort Cardio Other: Normal peripheral perfusion GI Other: Abdomen is soft, nondistended, mild generalized tenderness to palpation without guarding Skin Other: Warm dry no rash Neuro General: patient oriented x3, gait normal, no focal motor deficits and CN's II- XI intact bilaterally Psych Other: Cooperative Course Course Course Narrative: This is a Rapid Medical Examination (RME) performed by Hailey Rivrea PA-C in triage. Full HPI, ROS, assessment and treatment plan per primary provider in the Main ED. 08/31/24 1529 KEILY Montez Hx: 44 yo female hx DM here for eval of headache, dizziness, nausea w/o vomiting, abdominal pain, right leg pain x3 days. reports glucose has read >500 for the past 3 days. reports compliance with medications. PE/vitals: well appearing Plan: labs, vbg, UA Medications Administered Discontinued Medications Generic Name Dose Route Start Last Admin Trade Name Rahul PRN Reason Stop Dose Admin Glyburide 5 mg 08/31/24 20:32 08/31/24 21:13 Glyburide 5 Mg Tablet PO 08/31/24 20:33 5 mg ONCE ONE Administration Sodium Chloride 1,000 mls @ 999 mls/hr 08/31/24 17:45 08/31/24 19:11 Ns IV 08/31/24 18:45 Infused .Q1H1M FARIHA Infusion Ketorolac Tromethamine 15 mg 08/31/24 18:23 08/31/24 18:34 Ketorolac Tromethamine 15 Mg/Ml Vial IVPUSH 08/31/24 18:24 15 mg ONCE ONE Administration Metformin HCl 1,000 mg 08/31/24 20:32 08/31/24 21:13 Metformin Hcl 1,000 Mg Tablet PO 08/31/24 20:33 1,000 mg ONCE ONE Administration Methocarbamol 1,500 mg 08/31/24 18:23 08/31/24 18:35 Methocarbamol 750 Mg Tablet PO 08/31/24 18:24 1,500 mg ONCE ONE Administration Ondansetron HCl 4 mg 08/31/24 18:23 08/31/24 18:34 Ondansetron Hcl 4 Mg/2 Ml Vial IVPUSH 08/31/24 18:24 4 mg ONCE ONE Administration Procedures Procedure Narrative Procedure Narrative: Ultrasound-guided IV 18 gauge 1-3/4 inch IV placed in right upper extremity, adequate blood return, flushes well secured with Tegaderm Medical Decision Making Medical Decision Making MDM Narrative: 44-year-old female with a history of morbid obesity, diabetes presents with multiple complaints. Patient states she has noted her blood sugars to be elevated over the past 3 days. Associated generalized abdominal discomfort, nausea and constipation. Patient had a minimal bowel movement today. Denies abdominal distention or inability to pass flatus. No fevers. Patient also complains of ongoing right sided lumbar pain for months. Patient states her discomfort was precipitated by physical exercise, she woke the next morning with discomfort. Pain originates in right lower back, radiates down the right lower extremity. Associated paresthesia at times. Denies urinary retention, bowel incontinence or weakness of lower extremity. This is the 1st time that the patient is seeking medical attention for her pain. Problem: Obesity, chronic back pain, diabetes History: Per patient I have considered the following differential diagnoses: Lumbar radiculopathy, lumbar strain, cauda equina, gastroparesis, constipation, bowel obstruction, hyperglycemia, DKA, HHS Plan: Screening labs were already obtained from triage, she is not in DKA, we will give IV fluid. Urine was obtained it was not infected. In regard to her abdominal discomfort, she is likely constipated, she has no obstructive symptoms. We will give Zofran. Lastly, and guard to her back pain, she is having radicular symptoms, without red flag signs symptoms concerning for cord compression. We will treat with Toradol and methocarbamol. Obtaining imaging of the abdomen and lumbar spine. I have independently reviewed the following tests: Labs: No leukocytosis, not anemic, no electrolyte abnormality, no gap, sugar 441, BOH 0.14, urine not infected KUB: Findings: No pneumoperitoneum or pneumatosis. No abnormal calcifications. No acute fractures. IMPRESSION: Normal bowel gas pattern X-ray lumbar spine:Findings: Normal alignment. No acute fractures or dislocation. No significant degenerative change. IMPRESSION: No acute findings. Lab Data 08/31/24 16:05 08/31/24 16:05 Labs: Lab Results 08/31/24 08/31/24 08/31/24 Range/Units 16:05 16:06 16:11 WBC 10.3 (4.8-10.8) X10*3/uL RBC 4.67 (4.20-5.50) X10*6/uL Hgb 14.2 (12.0-16.0) g/dl Hct 40.8 (37.0-47.0) % MCV 87.4 (80.0-98.0) fL MCH 30.4 (27.0-33.0) pg MCHC 34.8 (31.0-35.0) g/dl RDW 12.5 (11.0-16.0) % Plt Count 293 (160-400) X10*3/uL MPV 11.1 (9.4-12.3) fL Immature Gran % (Auto) 0.2 (0.0-0.4) % Neut % (Auto) 71.5 (45-73) % Lymph % (Auto) 20.8 (20-40) % [place] % (Auto) 5.4 (2-11) % Eos % (Auto) 1.7 (0-4) % Baso % (Auto) 0.4 (0-2) % Lymph # (Auto) 2.1 (1.2-4.9) X10*3/uL [place] # (Auto) 0.6 (0.1-1.2) X10*3/uL Eos # (Auto) 0.2 (0.0-0.4) X10*3/uL Baso # (Auto) 0.0 (0.0-0.2) X10*3/uL Abs Immat Gran (auto) 0.02 (0.00-0.03) X10*3/uL Absolute Neuts (auto) 7.4 (2.0-8.3) x10*3/uL Absolute Nucleated RBC 0.000 (0.0-0.012) X10*3/uL Nucleated RBC % (auto) 0.0 (0.0-0.2) /100WBC VBG pH 7.45 H (7.32-7.43) VBG pCO2 40 mmHg VBG pO2 58 mmHg VBG HCO3 28 H (22-26) mmol/L VBG O2 Saturation 88.0 % VBG Base Excess 4.0 mmol/L Sodium 134 L (135-145) mmol/L Potassium 4.3 (3.3-5.1) mmol/L Chloride 101 (96-108) mmol/L Carbon Dioxide 25 (22-29) mmol/L Anion Gap 12 (12-20) BUN 11 (9-16) mg/dL Creatinine 0.95 (0.5-1.4) mg/dL Estim Creat Clear Calc 83.0 Estimated GFR > 60 Random Glucose 441 H* (60-115) mg/dL Calcium 10.0 (8.4-10.2) mg/dL Magnesium 1.8 (1.6-2.6) mg/dL Total Bilirubin 0.4 (0.0-1.0) mg/dL AST 17 (5-31) U/L ALT 20 (0-31) U/L Alkaline Phosphatase 119 H (39-117) U/L Total Protein 7.6 (6.5-8.0) g/dL Albumin 4.2 (3.5-5.0) g/dL Lipase 10 (8-78) U/L Beta-Hydroxybutyrate 0.14 (0.02-0.27) mmol/L Urine Color Yellow Urine Appearance Clear Urine pH 6.0 (5.0-9.0) Ur Specific [place] >= 1.030 H (1.005-1.025) Urine Protein Negative (Neg-Trace) mg/dL Urine Glucose (UA) >=1000 H (Negative) mg/dL Urine Ketones Trace (Negative) mg/dL Urine Blood Negative (Negative) Urine Nitrite Negative (Negative) Ur Leukocyte Esterase Negative (Negative) Urine RBC 0-2 (0-2) /HPF Urine WBC 0-5 (0-5) /HPF Ur Squamous Epith Cells 0-2 (0-2) /HPF Urine Bacteria None Seen (None Seen) Hyaline Casts 0-2 (0-2) /LPF Discharge Plan Discharge Clinical Impression: Constipation, Chronic right-sided lumbar radiculopathy, Hyperglycemia Patient Disposition: Home, Self-Care Instructions: Constipation (ED), Lumbar Radiculopathy (ED), Diabetic Hyperglycemia (ED) Additional Instructions: In regard to your diabetes, you need to take your medications as directed. You need to establish primary care. I am refilling your medication for a month. Take both medications as directed. You were also found to be constipated. See home care instructions. Use [id number] Colace, this is a stool softener, twice a day, in addition use [id number] MiraLax, 3 to 4 times a day, until you begin having multiple large volume bowel movements. Use the metoclopramide as needed for nausea. Lastly, in regard to your back pain, we are treating you for sciatica or lumbar radiculopathy. See home care instructions. Exercise and weight loss are instrumental in managing your ongoing back pain. I have provided you with a list of exercises to perform at home. Take the methocarbamol as needed the, this is a muscle relaxant, it will cause drowsiness do not drive or operate machinery while taking the medication. Use the ketorolac as directed, this is the anti-inflammatory, take it with food. If your symptoms persist, the next step would be physical therapy that your primary care provider can arrange for you. Prescriptions: New glimepiride 4 mg tablet 4 mg PO BID Qty: 60 0RF Rx Instructions: administer with breakfast metformin 1,000 mg tablet 1,000 mg PO BID Qty: 60 0RF methocarbamol 750 mg tablet 1,500 mg PO Q8H PRN (Reason: pain, moderate) Qty: 20 0RF ketorolac 10 mg tablet 10 mg PO Q6H PRN (Reason: pain) Qty: 20 0RF Rx Instructions: maximum total duration of 5 days from all oral, intranasal, or parenteral formulations. The patient received an IV dose of Toradol here in the emergency room metoclopramide HCl 10 mg tablet 10 mg PO Q6H PRN (Reason: nausea and vomiting) Qty: 12 0RF No Action glimepiride 4 mg tablet 4 mg PO DAILY Qty: 30 0RF glimepiride 4 mg tablet 4 mg PO QAM Qty: 30 0RF Rx Instructions: administer with breakfast Stand Alone Forms: Work/School Release Interventions: ED Discharge Assessment Last Done: 08/31/24 21:44 Discharge Date/Time: 08/31/24 21:46 Print Language: Macedonian
[2024-08-31 16:13] LABS: MANUAL DIFF FLAG NO
[2024-08-31 16:15] LABS: Venous Blood Gas Refer to POC result
[2024-08-31 16:15] LABS: VBG HCO3 28 mmol/L (22-26); VBG pCO2 40 mmHg; VBG pH 7.45 (7.32-7.43); VBG pO2 58 mmHg
[2024-08-31 16:15] LABS: Basophils Percent Auto 0.4 % (0-2); Eosinophils Absolute Auto 0.2 X10*3/uL (0.0-0.4); Eosinophils Percent Auto 1.7 % (0-4); Hematocrit 40.8 % (37.0-47.0); Hemoglobin 14.2 g/dl (12.0-16.0); Imm Gran Abs Auto 0.02 X10*3/uL (0.00-0.03); Imm Gran Pct Auto 0.2 % (0.0-0.4); Lymphocytes Absolute Auto 2.1 X10*3/uL (1.2-4.9); Lymphocytes Percent Auto 20.8 % (20-40); Mean Corpuscular HGB Conc 34.8 g/dl (31.0-35.0); Mean Corpuscular Hemoglobin 30.4 pg (27.0-33.0); Mean Corpuscular Volume 87.4 fL (80.0-98.0); Mean Platelet Volume 11.1 fL (9.4-12.3); Monocytes Absolute Auto 0.6 X10*3/uL (0.1-1.2); Monocytes Percent Auto 5.4 % (2-11); Neutrophils Absolute Auto 7.4 x10*3/uL (2.0-8.3); Neutrophils Percent Auto 71.5 % (45-73); Platelet Count 293 X10*3/uL (160-400); Red Blood Count 4.67 X10*6/uL (4.20-5.50); Red Cell Distribution Width 12.5 % (11.0-16.0); White Blood Count 10.3 X10*3/uL (4.8-10.8)
[2024-08-31 16:15] LABS: Appearance Urine Clear; Color Urine Yellow; Glucose Urine UA >=1000 mg/dL (Negative); Leukocyte Esterase Urine Negative (Negative); Nitrite Urine Negative (Negative); Specific Gravity - Urine >= 1.030 (1.005-1.025); UMIC TRIGGER UACC YES; Urine Blood Negative (Negative); Urine Ketones Trace mg/dL (Negative); Urine Protein Negative (Neg-Trace)
[2024-08-31 16:27] LABS: Bacteria Urine None Seen (None Seen); Hyaline Casts Urine 0-2 /LPF (0-2); RBC Urine 0-2 /HPF (0-2); Squamous Epithelial Cell Urine 0-2 /HPF (0-2); WBC Urine 0-5 /HPF (0-5)
[2024-08-31 16:34] LABS: Alanine Aminotransferase 20 U/L (0-31); Albumin Level 4.2 g/dL (3.5-5.0); Alkaline Phosphatase 119 U/L (39-117); Anion Gap 12 (12-20); Aspartate Amino Transferase 17 U/L (5-31); Bilirubin Total 0.4 mg/dL (0.0-1.0); Blood Urea Nitrogen 11 mg/dL (9-16); Carbon Dioxide 25 mmol/L (22-29); Chloride 101 mmol/L (96-108); Estimated Glomerular Filt Rate > 60; Glucose Random 441 mg/dL (60-115); Lipase 10 U/L (8-78); Magnesium 1.8 mg/dL (1.6-2.6); Potassium 4.3 mmol/L (3.3-5.1); Sodium 134 mmol/L (135-145); Total Protein 7.6 g/dL (6.5-8.0)
[2024-08-31 18:00] VITALS: BP 132/83; PULSE 67; RESP 18; O2SAT 98
[2024-08-31] MEDS: 0.9 % Sodium Chloride 1,000 ML 999 ML IV (18:20)
[2024-08-31] MEDS: ondansetron HCL 4 MG/2 ML VIAL IVPUSH (18:34)
[2024-08-31] MEDS: Ketorolac Tromethamine 15 MG/ML VIAL IVPUSH (18:34)
[2024-08-31] MEDS: methocarbamoL 750 MG TABLET 1500 MG PO (18:35)
[2024-08-31 18:46] LABS: Beta-Hydroxybutyrate 0.14 mmol/L (0.02-0.27)
--- OUTSIDE RECORDS SUMMARY | 2024-08-31 18:53 | XMS_ITS ---
Author Organization [facility] Address [address] [place] [address] Care Team Providers Care Wire Walker Name Role Phone SOFÍA STONE Primary Care Provider [phone] ARSEN FUNG [phone] Social History Sex Assigned At : Social History Observation Description Sex Assigned At Female Encounters Encounter Location Date Provider Diagnosis [facility] [address] [facility] [address] [place] [address] 07/03/2024 ARSEN FUNG Plan Of Treatment No Information Progress Notes * STEFFANIE GALLEGOSOB:1 07/16/1979 (44 yo F)Acc No.[id number]:07/03/2024 Progress Notes Patient:?RAMSEY GALLEGOS Provider:?ARSEN BUCKLEY MD :1980???Age:44 Y???Sex:Female D ate:07/03/2024 Address:[address], [place], [id number] Pcp:SOFÍA BRUNO Structured Data:[place] : No Subjective: * Chief Complaints: * ??? * Medical History:? Objective: * Vitals:? Assessment: Plan: * Treatment: * Billing Information: * Visit Code:? * Procedure Codes:? * Electronic signature of PRERNA FUNG , [id number] on 08/31/2024 at 06:51 PM BOT Sign off status: Pending * Provider:?ARSEN BUCKLEY MD Jake e:?07/03/2024 Generated for Kristopher weldon/Alexey/Sruthi on:?08/31/2024 06:51 PM BOT
--- OUTSIDE RECORDS SUMMARY | 2024-08-31 18:53 | XMS_ITS ---
Author Organization [facility] Address [address] [place] [address] Care Team Providers Care Datastage Developer Name Role Phone SOFÍA STONE Primary Care Provider [phone] ZULEMA JOHANSEN [phone] REASON FOR VISIT PAP Social History Sex Assigned At : Social History Observation Description Sex Assigned At Female Encounters Encounter Location Date Provider Diagnosis [facility] [address] [facility] [place] [address] 03/12/2024 ZULEMA VALDES Plan Of Treatment No Information Progress Notes * STEFFANIE GALLEGOSOB:1 07/16/1979 (44 yo F)Acc No.[id number]:03/12/2024 Progress Notes Patient:?RAMSEY GALLEGOS Provider:?ZULEMA VALDES :1980???Age:43 Y???Sex:Female D ate:03/12/2024 Address:[address], [place], [id number] Pcp:SOFÍA BRUNO Structured Data:[place] : No Subjective: * Chief Complaints: * ???1. PAP. * Medical History:? Objective: * Vitals:? Assessment: Plan: * Treatment: * Billing Information: * Visit Code:? * Procedure Codes:? * Electronic signature of ZULEMA VALDES MD, [id number] on 08/31/2024 at 06:51 PM BOT Sign off status: Pending * Provider:?ZULEMA VALDES Date:? Generated for Kristopher weldon/Alexey/Sruthi on:?08/31/2024 06:51 PM BOT
--- OUTSIDE RECORDS SUMMARY | 2024-08-31 18:53 | XMS_ITS | Patient Health Record ---
Author Organization [facility] [employer] Address [address] [place] [address] Care Team Providers Care Rod Cup Filler Name Role Phone HALEY STONEJoshua Primary Care Provider [phone] ENRIQUE BUCKLEY Unavailable [phone] ARSEN FUNG Unavailable [phone] ZULEMA JOHANSEN Unavailable [phone] Allergies No Known Allergies Results Component Value Reference Range Notes Thin prep (Not yet reviewed by provider) Interpretation: Performing Lab: Notes/Report: Pap Smear NILM Reason For Referral No Information Medications Medication SIG (Take, Route, Frequency, Duration) Notes Start Date End Date Status Omeprazole 40 MG 1 capsule 30 minutes before morning meal Orally Once a day for 30 days 07/14/2021 Active Gabapentin 100 MG 1 capsule Orally Onc e a day for 30 days 04/17/2023 Active Tradjenta 5 MG 1 tablet Orally Once a day for 30 days E11.65 hgbA1c 10.0 Active Lantus 100 UNIT/ML 23 units in the evening Subcutaneous Once a day for 44 days Active Insulin Syringe 30G X 5/16 1 ML as directed sc daily for 30 days Active metFORMIN HCl 1000 MG 1 tablet with a me al Orally TWICE A DAY for 30 days 04/16/2022 Active Glimepiride 4 MG 1 tablet with breakfast or the first main meal of the day and afternoon meal Orally TWICE A DAY for 30 days 07/14/2021 Active Lisinopril 2.5 MG 1 tablet Orally Once a day for 30 days 07/14/2021 Active Simvastatin 20 MG 1 tablet in the evening Orally Once a day for 30 day(s) 07/14/2021 Active Aspirin 81 MG 1 tablet Orally Once a day for 30 days 12/04/2022 Active Immunizations Vaccine Route Administration Date Status Comme nts INFLUENZA FLUARIX (317) IM Intramuscular 04/17/2023 Admini stered Social History Tobacco Use: Social History Observation Description Date Details (start date - stop date) Never Smoker NA - NA Sex Assigned At : Social History Observation Description Sex Assigned At Female Tobacco Use/Smoking Question Answer Notes Tobacco use: nonsmoker Alcohol Screen (Audit-C) Question Answer Notes Did you have a drink containing alcohol in the p ast year? No Points 0 Interpretation Negative Sexual History Question Answer Notes Had sex in the past 12 months (vaginal, oral, or anal)? Yes SBIRT (2018 Edition) Question Answer Notes Patient refused/declined SBIRT screening at this time? No 1. How often do you have a drink containing alco hol? Never 3. How often do you have five or more drinks on one occasion? Never SCORE 0 Interpretation Negative How many times in the past y ear have you used an illegal drug or used a prescription medication for non-medical reasons? 0 Total Count 0 Interpretation Negative Problems Problem Type SNOMED Code ICD Code Onset Dates Problem Status W/U Status Risk Notes Problem Polyneuropathy due to type 2 diabetes mellitus (969053003) Type 2 diabetes mellitus with diabetic polyneuropathy (E11.42) Active confirmed Problem 42136600 Type 2 diabetes mellitus with hyperglycemia (E11.65) Active confirmed Problem Type II diabetes mellitus without complication (607062729) Type 2 diabetes mellitus without complications (E11.9) Active confirmed Problem Obesity (261787334) Other obesit y (E66.8) Active confirmed Problem Hyperlipidemia (29621495) Hyperlipidemia, unspecified (E78.5) Active confirmed Problem Gastro-esophageal reflux disease without esophagitis (510440480) Gastro-esophageal reflux disease without esophagitis (K21.9) Active confirmed Problem Gastroduodenitis (879909907) Gastritis, unspecified, without bleeding (K29.70) Active confirmed Problem 520918929 long-term (current) use of insulin (Z79.4) Active confirmed Problem 4687536 Diabetes mellitu s due to underlying condition with mild nonproliferative diabetic retinopathy without macular edema, bilateral (E08.3293) Active confirmed Problem 88849165 Type 2 diabetes mellitus with proliferative diabetic retinopathy with macular edema, 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) Active confirmed Problem 48236305 Other specified diabetes mellitus with proliferative diabetic retinopathy with macular edema, right eye (E13.3511) Active confirmed Problem 453774102 Body mass index [BMI] 35.0-35.9, adult (Z68.35) Active confirmed Problem 479917172 Body mass index [BMI] 36.0-36.9, adult (Z68.36) Active confirmed Problem 11632942 Dyspareunia in female (N94.10) Active confirmed Problem Type II diabetes mellitus without complication (917271926) Controlled type 2 diabetes mellitus without complication, without long-term current use of insulin (E11.9) Active confirmed Vital Signs Heart Rate 75 /min 01/29/2024 SE RECIBE PACIE NTE DE ALERTA, ORIENTADO EN TIEMPO LUGAR Y PERSONA. REFIERE PAP . SE COMPLETA HISTORIAL MEDICO Y SE JENNIFER SIGNOS VITALES ADJUNTADOS EN TABLA PARA REFERENCIA. PACIENTE EN JOSE DE ESPERA PARA EVALUACION MEDICA. Monica Campos 01/29/2024 10:43:21 AM BOT > Temperature 97.5 degrees Fahrenheit 01/29/2024 SE R ECIBE PACIENTE DE ALERTA, ORIENTADO EN TIEMPO LUGAR Y PERSONA. REFIERE PAP . SE COMPLETA HISTORIAL MEDICO Y SE JENNIFER SIGNOS VITALES ADJUNTADOS EN TABLA PARA REFERENCIA. PACIENTE EN JOSE DE ESPERA PARA EVALUACION MEDICA. Monica Campos 01/29/2024 10:43:21 AM BOT > Respiratory Rate 19 /min 01/29/2024 SE RECIBE P ACIENTE DE ALERTA, ORIENTADO EN TIEMPO LUGAR Y PERSONA. REFIERE PAP . SE COMPLETA HISTORIAL MEDICO Y SE JENNIFER SIGNOS VITALES ADJUNTADOS EN TABLA PARA REFERENCIA. PACIENTE EN JOSE DE ESPERA PARA EVALUACION MEDICA. Monica Campos 01/29/2024 10:43:21 AM BOT > Oximetry 98 % 01/29/2024 SE RECIBE PACIE NTE DE ALERTA, ORIENTADO EN TIEMPO LUGAR Y PERSONA. REFIERE PAP . SE COMPLETA HISTORIAL MEDICO Y SE JENNIFER SIGNOS VITALES ADJUNTADOS EN TABLA PARA REFERENCIA. PACIENTE EN JOSE DE ESPERA PARA EVALUACION MEDICA. Monica Campos 01/29/2024 10:43:21 AM BOT > Blood pressure diastolic 85 mm Hg 01/29/2024 SE RECIBE PACIENTE DE ALERTA, ORIENTADO EN TIEMPO LUGAR Y PERSONA. REFIERE PAP . SE COMPLETA HISTORIAL MEDICO Y SE JENNIFER SIGNOS VITALES ADJUNTADOS EN TABLA PARA REFERENCIA. PACIENTE EN JOSE DE ESPERA PARA EVALUACION MEDICA. Saumya Camposlis 01/29/2024 10:43:21 AM BOT > Weight-kg 91.63 kg 01/29/2024 SE RECIBE PACIE NTE DE ALERTA, ORIENTADO EN TIEMPO LUGAR Y PERSONA. REFIERE PAP . SE COMPLETA HISTORIAL MEDICO Y SE JENNIFER SIGNOS VITALES ADJUNTADOS EN TABLA PARA REFERENCIA. PACIENTE EN JOSE DE ESPERA PARA EVALUACION MEDICA. Monica Campos 01/29/2024 10:43:21 AM BOT > Height 63 in 01/29/2024 SE RECIBE PACIE NTE DE ALERTA, ORIENTADO EN TIEMPO LUGAR Y PERSONA. REFIERE PAP . SE COMPLETA HISTORIAL MEDICO Y SE JENNIFER SIGNOS VITALES ADJUNTADOS EN TABLA PARA REFERENCIA. PACIENTE EN JOSE DE ESPERA PARA EVALUACION MEDICA. Monica Campos 01/29/2024 10:43:21 AM BOT > Blood pressure systolic 129 mm Hg 01/29/2024 SE R ECIBE PACIENTE DE ALERTA, ORIENTADO EN TIEMPO LUGAR Y PERSONA. REFIERE PAP . SE COMPLETA HISTORIAL MEDICO Y SE JENNIFER SIGNOS VITALES ADJUNTADOS EN TABLA PARA REFERENCIA. PACIENTE EN JOSE DE ESPERA PARA EVALUACION MEDICA. Trevor Loo Lucianogarcía 01/29/2024 10:43:21 AM BOT > Weight 202.0 lbs 01/29/2024 SE RECIBE PACIE NTE DE ALERTA, ORIENTADO EN TIEMPO LUGAR Y PERSONA. REFIERE PAP . SE COMPLETA HISTORIAL MEDICO Y SE JENNIFER SIGNOS VITALES ADJUNTADOS EN TABLA PARA REFERENCIA. PACIENTE EN JOSE DE ESPERA PARA EVALUACION MEDICA. Trevor EzeMonica 01/29/2024 10:43:21 AM BOT > BMI 35.78 kg/m2 01/29/2024 SE RECIBE PACIE NTE DE ALERTA, ORIENTADO EN TIEMPO LUGAR Y PERSONA. REFIERE PAP . SE COMPLETA HISTORIAL MEDICO Y SE JENNIFER SIGNOS VITALES ADJUNTADOS EN TABLA PARA REFERENCIA. PACIENTE EN JOSE DE ESPERA PARA EVALUACION MEDICA. Monica Campos 01/29/2024 10:43:21 AM BOT > Encounters Encounter Location Date Provider Diagnosis [facility] [address] [place] [address] 01/29/2024 ZULEMA VALDES Encounter for cervical Pap smear with pelvic exam Z01.419 [facility] [place] [address] [place] [address] 02/07/2024 ZULEMA VALDES Counseling and coordination of care Z71.89 Assessments Encounter Date Diagnosis (ICD Code) Assessment Notes Treatment Notes Treatment Clinical Notes Section Notes 01/29/2024 Encounter for cervical Pap smear with pelvic exam (ICD-10 - Z01.419) 02/07/2024 Counseling and coordination of care (ICD-10 - Z71.89) Plan Of Treatment Pending Test Test Name Order Date Ultrasound : Abdomen and Pelvis 03/28/20 22 Hemoglobin A1c 07/10/2022 Hemoglobin A1c 12/04/2022 Urinalysis, Complete 09/19/2021 Cortisol 09/19/2021 TSH 07/10/2022 TSH 12/04/2022 CBC With Differential/Platelet 3 CBC With Differential/Platelet 3 CBC With Differential/Platelet 2 Occult Blood, Stool, Guaiac 09/19/2021 Vitamin D, 25-Hydroxy 09/19/2021 Vitamin D, 25-Hydroxy 03/28/2022 Hgb A1c with MBG Estimation 09/19/2021 Microalbumin, 24 hr Urine 03/28/2022 Occult Blood, Fecal, IA 12/04/2022 TSH+Free T4 09/19/2021 Lipid Panel 09/19/2021 Lipid Panel 12/04/2022 Lipid Panel 07/10/2022 Comp. Metabolic Panel (14) 07/10/2022 Comp. Metabolic Panel (14) 12/04/2022 Comp. Metabolic Panel (14) 08/16/2021 Comp. Metabolic Panel (14) 09/19/2021 HIV 12/04/2022 MAMMOGRAM, SCREENING 03/28/2022 Urine Culture and Sensitivity 04/16/2022 Urinalysis 07/10/2022 Urinalysis 12/04/2022 Ultrasound : Transvaginal 03/28/2022 Mammogram (Bilateral), Diagnostic comput er aided 04/16/2022 Thin prep 01/29/2024 COVID - 19 SARS ANTIGEN LE 04/16/2022 MICROALBUMIN RANDOM 12/04/2022 MICROALBUMIN RANDOM 07/10/2022 Insurance Providers Payer Name Payer Address Payer Phone Subscriber Number Group Number Insured Name Patient Relationship to Insured Coverage Start Date Coverage End Date [employer] [address] [address] [place], [place] [id number] AISSATOU GALLEGOS Self - patient is the insured 3 8 Medical (General) History Medical History History ICD Code DIABETES NEUROPATIA COLESTEROL Surgical History Surgery Date(Month/Year) CESAREA (3) HERNIA
[2024-08-31 20:21] VITALS: BP 137/83; PULSE 63; RESP 16; TEMP 36.6; O2SAT 98
--- NOTE | 2024-08-31 20:52 | PC.NURSE ---
Awaiting med from pharm.
[2024-08-31] MEDS: metFORMIN HCl 1,000 MG TABLET 1000 MG PO (21:13)
[2024-08-31] MEDS: glyBURIDE 5 MG TABLET PO (21:13)
[2024-08-31 21:44] VITALS: BP 115/82; PULSE 70; RESP 18; TEMP 37; O2SAT 98
== END 2024-08-31 21:46 | disposition home or self-care (01) ==
PROVIDERS: Physician Assistant Medical; Emergency Provider Emergency Medicine
DX: M54.16 Radiculopathy, lumbar region (principal); K59.00 Constipation, unspecified; E11.65 Type 2 diabetes mellitus with hyperglycemia; R51.9 Headache, unspecified; R10.2 Pelvic and perineal pain; R11.0 Nausea; Z79.899 Other long term (current) drug therapy; Z79.84 Long term (current) use of oral hypoglycemic drugs
CPT/HCPCS: 36415; 72100; 74018; 80053; 81001; 82010; 82803; 83690; 83735; 85025; 96361; 96374; 96375; 99284; J1885; J2405

== ENCOUNTER → 2024-08-31 18:23 | Outpatient (BNV) | payer SELFPAY | PROVIDERS: Emergency Provider Emergency Medicine; Visit Provider Student in an Organized Health Care Education/Training Program | DX: M54.50 Low back pain, unspecified (principal); R10.9 Unspecified abdominal pain | CPT/HCPCS: 72100; 74018 ==

== ENCOUNTER 2024-09-15 16:30 | Emergency (ER) | payer MEDICAID, SELFPAY ==
--- NOTE | ~2024-09-15 | XR_ITS ---
CLINICAL HISTORY: cough 1 view chest x-ray Comparison: None Findings: No consolidation, pneumothorax, or pleural effusion. Mild right infrahilar atelectasis/pneumonitis. Cardiac silhouette at the upper limits of normal. No acute fracture. IMPRESSION: Mild right infrahilar atelectasis/pneumonitis. This document has been electronically signed by: Lio Singh MD on 09/15/2024 19:46:26
[2024-09-15 16:44] VITALS: BP 142/75; PULSE 76; RESP 16; TEMP 36.8; O2SAT 98; BMI 35.8
[2024-09-15 18:15] LABS: Glucose, Whole Blood 52 mg/dL (60-115)
[2024-09-15 18:15] LABS: Glucose, Whole Blood 74 mg/dL (60-115)
[2024-09-15 18:17] LABS: Influenza A PCR NEGATIVE (Negative); Influenza B PCR NEGATIVE (Negative); Resp Syncy Virus RNA Qual PCR NEGATIVE (Negative); SARS COV2 PCR INHOUSE NEGATIVE (Negative)
[2024-09-15 18:56] LABS: Glucose, Whole Blood 109 mg/dL (60-115)
[2024-09-15 19:31] VITALS: BP 146/88; PULSE 78; RESP 16; TEMP 36.8; O2SAT 99
[2024-09-15] MEDS: Dextrose 50 % 25 GM/50 ML SYRINGE IVPUSH (19:39)
[2024-09-15 19:46] LABS: MANUAL DIFF FLAG NO
[2024-09-15 19:51] LABS: Basophils Percent Auto 0.3 % (0-2); Eosinophils Absolute Auto 0.3 X10*3/uL (0.0-0.4); Hematocrit 35.5 % (37.0-47.0); Imm Gran Abs Auto 0.02 X10*3/uL (0.00-0.03); Imm Gran Pct Auto 0.2 % (0.0-0.4); Lymphocytes Absolute Auto 2.1 X10*3/uL (1.2-4.9); Lymphocytes Percent Auto 20.3 % (20-40); Mean Corpuscular HGB Conc 33.8 g/dl (31.0-35.0); Mean Corpuscular Hemoglobin 30.6 pg (27.0-33.0); Mean Corpuscular Volume 90.6 fL (80.0-98.0); Mean Platelet Volume 10.5 fL (9.4-12.3); Monocytes Absolute Auto 0.9 X10*3/uL (0.1-1.2); Monocytes Percent Auto 8.4 % (2-11); Neutrophils Absolute Auto 6.8 x10*3/uL (2.0-8.3); Neutrophils Percent Auto 67.8 % (45-73); Platelet Count 261 X10*3/uL (160-400); Red Blood Count 3.92 X10*6/uL (4.20-5.50); Red Cell Distribution Width 12.8 % (11.0-16.0); White Blood Count 10.1 X10*3/uL (4.8-10.8)
[2024-09-15 20:07] LABS: Alanine Aminotransferase 21 U/L (0-31); Albumin Level 3.8 g/dL (3.5-5.0); Alkaline Phosphatase 71 U/L (39-117); Anion Gap 12 (12-20); Aspartate Amino Transferase 17 U/L (5-31); Bilirubin Total 0.2 mg/dL (0.0-1.0); Blood Urea Nitrogen 11 mg/dL (9-16); Calcium 9.8 mg/dL (8.4-10.2); Carbon Dioxide 24 mmol/L (22-29); Chloride 107 mmol/L (96-108); Creatinine Clr Calc Pharmacy 135.6; Estimated Glomerular Filt Rate > 60; Glucose Random 144 mg/dL (60-115); Magnesium 1.8 mg/dL (1.6-2.6); Potassium 3.7 mmol/L (3.3-5.1); Sodium 139 mmol/L (135-145); Total Protein 6.8 g/dL (6.5-8.0)
[2024-09-15 20:10] LABS: HCG Quantitative < 2 mIU/mL
[2024-09-15 20:31] LABS: Glucose, Whole Blood 196 mg/dL (60-115)
--- NOTE | 2024-09-15 22:38 | ED.GENADULT ---
HPI - General Adult General Chief complaint: Upper Respiratory Symptoms Stated complaint: Congestion/Headache Time Seen by Provider: 09/15/24 19:08 Source: patient History of Present Illness ED Provider: Jaye Conte PA-C HPI narrative: 44-year-old female with a history of diabetes presents with cough and cold symptoms x3 days. Cough is dry nonproductive, associated subjective fevers. Denies tobacco use or shortness of breath. Related Data Previous Rx's ?Medication ?Instructions ?Recorded glimepiride 4 mg tablet 4 mg PO DAILY #30 tabs 03/21/20 glimepiride 4 mg tablet 4 mg PO QAM #30 tabs 11/15/20 glimepiride 4 mg tablet 4 mg PO BID #60 tabs 08/31/24 ketorolac 10 mg tablet 10 mg PO Q6H PRN pain #20 tabs 08/31/24 metformin 1,000 mg tablet 1,000 mg PO BID #60 tabs 08/31/24 methocarbamol 750 mg tablet 1,500 mg (2 x 750 mg) PO Q8H PRN 08/31/24 pain, moderate #20 tabs metoclopramide HCl 10 mg tablet 10 mg PO Q6H PRN nausea and 08/31/24 vomiting #12 tabs Allergies Allergy/AdvReac Type Severity Reaction Status Date / Time No Known Allergies Allergy Verified 09/15/24 16:45 Review of Systems Review of Systems: Yes all other systems are reviewed and are negative Constitutional: Constitutional: Denies fatigue and Reports fever(s) Cardiovascular: Cardiovascular: Denies chest pain and Denies dyspnea Respiratory: Respiratory: Denies chest congestion, Reports cough and Denies dyspnea Endocrine: Endocrine: Denies fatigue [facility] Past Medical History Attestation statement: The following information was validated with the patient. Medical History delivery delivered COVID-19 Diabetes Hernia High cholesterol Social History Social History Alcohol intake: never Advance Directives: No Advance Directives Information Provided: No Do you have a plan to hurt others: No Plan Physical Exam ED Vital Signs: Vital Signs - 24 hr 09/15/24 16:44 09/15/24 19:31 Temperature 98.3 F 98.3 F Pulse Rate 76 78 Respiratory Rate 16 16 Blood Pressure 142/75 H 146/88 H Pulse Oximetry 98 99 Oxygen Delivery Method Room Air Room Air BMI result Body Mass Index 35.8 Const Other: Alert Orientation/consciousness: patient oriented x3 Resp Effort & Inspection: normal respiratory effort Cardio Other: Normal peripheral perfusion Skin Other: Warm dry no rash Neuro General: patient oriented x3, gait normal, no focal motor deficits and CN's II-XI intact bilaterally Psych Other: Cooperative Medications Administered Discontinued Medications Generic Name Dose Route Start Last Admin Trade Name Freq PRN Reason Stop Dose Admin Dextrose 25 gm 09/15/24 19:09 09/15/24 19:39 Dextrose 50 % 25 Gm/50 Ml Syringe IVPUSH 09/15/24 19:10 25 gm ONCE ONE Administration Medical Decision Making Medical Decision Making [facility] Narrative: 44-year-old female with a history of diabetes presents with cough and cold symptoms x3 days. Cough is dry nonproductive, associated subjective fevers. Denies tobacco use or shortness of breath. Problem: Diabetes History: Per patient I have considered the following differential diagnoses: Bronchitis, pneumonia, viral syndrome Plan: Screening labs including viral panel and chest x-ray obtained from triage everything is negative. Patient was incidentally found to be hypoglycemic, she is a new diabetic, she does not manage her blood sugars appropriately. I have advised she needs to check them throughout the day in between meals. She needs to follow up with primary care I have independently reviewed the following tests: Labs: No leukocytosis, not anemic, no electrolyte abnormality, viral panel negative Chest x-ray:MPRESSION: Mild right infrahilar atelectasis/pneumonitis. Lab Data 09/15/24 19:39 09/15/24 19:39 Labs: Lab Results 09/15/24 09/15/24 09/15/24 Range/Units 17:27 17:30 17:45 WBC (4.8-10.8) X10*3/uL RBC (4.20-5.50) X10*6/uL Hgb (12.0-16.0) g/dl Hct (37.0-47.0) % MCV (80.0-98.0) fL MCH (27.0-33.0) pg MCHC (31.0-35.0) g/dl RDW (11.0-16.0) % Plt Count (160-400) X10*3/uL MPV (9.4-12.3) fL Immature Gran % (Auto) (0.0-0.4) % Neut % (Auto) (45-73) % Lymph % (Auto) (20-40) % [place] % (Auto) (2-11) % Eos % (Auto) (0-4) % Baso % (Auto) (0-2) % Lymph # (Auto) (1.2-4.9) X10*3/uL [place] # (Auto) (0.1-1.2) X10*3/uL Eos # (Auto) (0.0-0.4) X10*3/uL Baso # (Auto) (0.0-0.2) X10*3/uL Abs Immat Gran (auto) (0.00-0.03) X10*3/uL Absolute Neuts (auto) (2.0-8.3) x10*3/uL Absolute Nucleated RBC (0.0-0.012) X10*3/uL Nucleated RBC % (auto) (0.0-0.2) /100WBC Sodium (135-145) mmol/L Potassium (3.3-5.1) mmol/L Chloride (96-108) mmol/L Carbon Dioxide (22-29) mmol/L Anion Gap (12-20) BUN (9-16) mg/dL Creatinine (0.5-1.4) mg/dL Estim Creat Clear Calc Estimated GFR POC Glucose 52 L* 74 (60-115) mg/dL Random Glucose (60-115) mg/dL Calcium (8.4-10.2) mg/dL Magnesium (1.6-2.6) mg/dL Total Bilirubin (0.0-1.0) mg/dL AST (5-31) U/L ALT (0-31) U/L Alkaline Phosphatase (39-117) U/L Total Protein (6.5-8.0) g/dL Albumin (3.5-5.0) g/dL Beta HCG, Quant mIU/mL Influenza Type A (PCR) NEGATIVE (Negative) Influenza Type B (PCR) NEGATIVE (Negative) RSV RNA Qual (PCR) NEGATIVE (Negative) SARS-CoV-2 RNA (RT-PCR) NEGATIVE (Negative) 09/15/24 09/15/24 09/15/24 Range/Units 18:52 19:39 20:27 WBC 10.1 (4.8-10.8) X10*3/uL RBC 3.92 L (4.20-5.50) X10*6/uL Hgb 12.0 (12.0-16.0) g/dl Hct 35.5 L (37.0-47.0) % MCV 90.6 (80.0-98.0) fL MCH 30.6 (27.0-33.0) pg MCHC 33.8 (31.0-35.0) g/dl RDW 12.8 (11.0-16.0) % Plt Count 261 (160-400) X10*3/uL MPV 10.5 (9.4-12.3) fL Immature Gran % (Auto) 0.2 (0.0-0.4) % Neut % (Auto) 67.8 (45-73) % Lymph % (Auto) 20.3 (20-40) % [place] % (Auto) 8.4 (2-11) % Eos % (Auto) 3.0 (0-4) % Baso % (Auto) 0.3 (0-2) % Lymph # (Auto) 2.1 (1.2-4.9) X10*3/uL [place] # (Auto) 0.9 (0.1-1.2) X10*3/uL Eos # (Auto) 0.3 (0.0-0.4) X10*3/uL Baso # (Auto) 0.0 (0.0-0.2) X10*3/uL Abs Immat Gran (auto) 0.02 (0.00-0.03) X10*3/uL Absolute Neuts (auto) 6.8 (2.0-8.3) x10*3/uL Absolute Nucleated RBC 0.000 (0.0-0.012) X10*3/uL Nucleated RBC % (auto) 0.0 (0.0-0.2) /100WBC Sodium 139 (135-145) mmol/L Potassium 3.7 (3.3-5.1) mmol/L Chloride 107 (96-108) mmol/L Carbon Dioxide 24 (22-29) mmol/L Anion Gap 12 (12-20) BUN 11 (9-16) mg/dL Creatinine 0.59 (0.5-1.4) mg/dL Estim Creat Clear Calc 135.6 Estimated GFR > 60 POC Glucose 109 196 H (60-115) mg/dL Random Glucose 144 H (60-115) mg/dL Calcium 9.8 (8.4-10.2) mg/dL Magnesium 1.8 (1.6-2.6) mg/dL Total Bilirubin 0.2 (0.0-1.0) mg/dL AST 17 (5-31) U/L ALT 21 (0-31) U/L Alkaline Phosphatase 71 (39-117) U/L Total Protein 6.8 (6.5-8.0) g/dL Albumin 3.8 (3.5-5.0) g/dL Beta HCG, Quant < 2 mIU/mL Influenza Type A (PCR) (Negative) Influenza Type B (PCR) (Negative) RSV RNA Qual (PCR) (Negative) SARS-CoV-2 RNA (RT-PCR) (Negative) Discharge Plan Discharge Clinical Impression: Acute viral syndrome, Hypoglycemia Patient Disposition: Home, Self-Care Instructions: Viral Syndrome (ED), Hypoglycemia in a Person with Diabetes (ED) Additional Instructions: All of your screening labs were overall normal, you were found to be hypoglycemic, which corrected with sugar and food. The viral panel was negative you were screened for influenza COVID and RSV. The chest x-ray is clear you do not have pneumonia. You need to keep track of your blood sugars throughout the day, and needs to be checked at least 3 times a day. You need to follow up with your primary care provider for education in regard to managing your diabetes. Prescriptions: No Action glimepiride 4 mg tablet 4 mg PO DAILY Qty: 30 0RF glimepiride 4 mg tablet 4 mg PO QAM Qty: 30 0RF Rx Instructions: administer with breakfast glimepiride 4 mg tablet 4 mg PO BID Qty: 60 0RF Rx Instructions: administer with breakfast metformin 1,000 mg tablet 1,000 mg PO BID Qty: 60 0RF methocarbamol 750 mg tablet 1,500 mg PO Q8H PRN (Reason: pain, moderate) Qty: 20 0RF ketorolac 10 mg tablet 10 mg PO Q6H PRN (Reason: pain) Qty: 20 0RF Rx Instructions: maximum total duration of 5 days from all oral, intranasal, or parenteral formulations. The patient received an IV dose of Toradol here in the emergency room metoclopramide HCl 10 mg tablet 10 mg PO Q6H PRN (Reason: nausea and vomiting) Qty: 12 0RF Stand Alone Forms: Work/School Release Print Language: Lithuanian
[2024-09-15 22:51] VITALS: BP 147/90; PULSE 65; RESP 16; TEMP 36.8; O2SAT 98
[2024-09-15 23:03] VITALS: BP 147/90; PULSE 65; RESP 16; TEMP 36.8; O2SAT 98
== END 2024-09-15 23:04 | disposition home or self-care (01) ==
PROVIDERS: Physician Assistant Medical; Emergency Provider Emergency Medicine
DX: B34.9 Viral infection, unspecified (principal); R05.9 Cough, unspecified; R50.9 Fever, unspecified; E11.649 Type 2 diabetes mellitus with hypoglycemia without coma; Z03.818 Encounter for observation for suspected exposure to other biological agents ruled out
CPT/HCPCS: 0241U; 36415; 71045; 80053; 82947; 83735; 84702; 85025; 96374; 99284

== ENCOUNTER → 2024-09-15 19:09 | Outpatient (BNV) | payer MEDICAID, SELFPAY | PROVIDERS: Visit Provider Radiology Neuroradiology | DX: R05.9 Cough, unspecified (principal) | CPT/HCPCS: 71045 ==

== ENCOUNTER 2024-12-02 18:30 | Emergency (ER) | payer OTHER, SELFPAY ==
--- NOTE | ~2024-12-02 | XR_ITS ---
CLINICAL HISTORY: right low back buttock pain Lumbar spine three views Comparison: 08/31/2024 Findings: No acute fracture or dislocation. Posterior alignment is normal. Moderate L5-S1 degenerative change. No radiopaque foreign bodies. Impression: No acute processes This document has been electronically signed by: Kofi Mendieta MD on 12/02/2024 19:37:58
[2024-12-02 18:40] VITALS: BP 135/83; PULSE 80; RESP 16; TEMP 36.6; O2SAT 98; BMI 34.6
--- NOTE | 2024-12-02 18:41 | ED.GENADULT ---
HPI - General Adult General Chief complaint: Back Pain/Injury Stated complaint: right leg pain s/p fall at work Related Data Previous Rx's ?Medication ?Instructions ?Recorded glimepiride 4 mg tablet 4 mg PO DAILY #30 tabs 03/21/20 glimepiride 4 mg tablet 4 mg PO QAM #30 tabs 11/15/20 glimepiride 4 mg tablet 4 mg PO BID #60 tabs 08/31/24 ketorolac 10 mg tablet 10 mg PO Q6H PRN pain #20 tabs 08/31/24 metformin 1,000 mg tablet 1,000 mg PO BID #60 tabs 08/31/24 methocarbamol 750 mg tablet 1,500 mg (2 x 750 mg) PO Q8H PRN 08/31/24 pain, moderate #20 tabs metoclopramide HCl 10 mg tablet 10 mg PO Q6H PRN nausea and 08/31/24 vomiting #12 tabs Allergies Allergy/AdvReac Type Severity Reaction Status Date / Time No Known Allergies Allergy Verified 12/02/24 18:43 [facility] Past Medical History Medical History delivery delivered COVID-19 Diabetes Hernia High cholesterol Social History Social History Alcohol intake: never Advance Directives: No Advance Directives Information Provided: Yes Do you have a plan to hurt others: No Plan Physical Exam ED Vital Signs: Vital Signs - 24 hr 12/02/24 18:40 Temperature 97.8 F Pulse Rate 80 Respiratory Rate 16 Blood Pressure 135/83 Pulse Oximetry 98 Oxygen Delivery Method Room Air BMI result Body Mass Index 34.6 Course Course Course Narrative: 12/02/24 1841 KEILY Montez This is a Rapid Medical Examination (RME) performed by Hailey Rivera PA-C in triage. Full HPI, ROS, assessment and treatment plan per primary provider in the Main ED. Hx: 44 yo F here w/ acute on chronic right lower back/buttock pain x days. reports hot sensation down right thigh. no bowel or bladder incontinence or retention. no back pain red flags. admits to fall at work 2 days ago however pain was present before this. Plan: xrs Reevaluation(s) Reevaluation #1: Patient left the emergency department before myself or any of the other clinicians could review or explain physical exam findings, test results, need or lack there of for additional testing, treatment options, or a treatment plan. Discharge Plan Discharge Clinical Impression: Lumbar radiculopathy Patient Disposition: Left W/O Completing Treatment Prescriptions: No Action glimepiride 4 mg tablet 4 mg PO DAILY Qty: 30 0RF glimepiride 4 mg tablet 4 mg PO QAM Qty: 30 0RF Rx Instructions: administer with breakfast glimepiride 4 mg tablet 4 mg PO BID Qty: 60 0RF Rx Instructions: administer with breakfast metformin 1,000 mg tablet 1,000 mg PO BID Qty: 60 0RF methocarbamol 750 mg tablet 1,500 mg PO Q8H PRN (Reason: pain, moderate) Qty: 20 0RF ketorolac 10 mg tablet 10 mg PO Q6H PRN (Reason: pain) Qty: 20 0RF Rx Instructions: maximum total duration of 5 days from all oral, intranasal, or parenteral formulations. The patient received an IV dose of Toradol here in the emergency room metoclopramide HCl 10 mg tablet 10 mg PO Q6H PRN (Reason: nausea and vomiting) Qty: 12 0RF Discharge Date/Time: 12/03/24 01:36
== END 2024-12-03 01:36 | disposition left against medical advice (07) ==
PROVIDERS: Emergency Provider Emergency Medicine
DX: M54.16 Radiculopathy, lumbar region (principal); M54.50 Low back pain, unspecified
CPT/HCPCS: 72100; 99281; 99283

== ENCOUNTER → 2024-12-02 18:42 | Outpatient (BNV) | payer MEDICAID, SELFPAY | PROVIDERS: Visit Provider Radiology Diagnostic Radiology | DX: M54.41 Lumbago with sciatica, right side (principal) | CPT/HCPCS: 72100 ==

== ENCOUNTER 2024-12-31 09:16 | Outpatient (AMB) | payer OTHER, SELFPAY ==
--- NOTE | 2024-12-31 09:18 | MHC.PC.OV ---
Vital Signs 12/31/24 09:19 Height 5 ft 4 in Weight 204 lb 4 oz BMI 35.1 BP 130/70 Blood Pressure Location Lt brachial Position Sitting Pulse 61 Pulse Source Pulse Oximeter Pulse Oximetry (%) 98 Oxygen Delivery Method Room Air Intake Visit Reasons: Establish care Machine Adjuster Helper Required: Yes Machine Adjuster Helper Language: Longwall Shearer Operator Name: Mario Accompanied by: Self / Same As Patient Allergies No Known Allergies Allergy (Verified 12/31/24 09:31) Medication List - Last Reconciled 12/31/24 by Carolin Hayes PA-C glimepiride 4 mg PO BID ketorolac 10 mg PO Q6H PRN metformin 1,000 mg PO BID methocarbamol 1,500 mg (2 x 750 mg) PO Q8H PRN metoclopramide HCl 10 mg PO Q6H PRN Tobacco use date assessed: 12/31/24 Dental Screening Dental Screen Date: 12/31/24 Did you have a dental visit in the last 12 months?: No Did you have a dental problem in the last 6 months where you did not have access to dental care?: No Was dental information given to patient?: No HPI Establish care HPI Details 44-year-old female coming to the office with the 1st time. In review of the notes, patient has been seen in [facility] multiple times this year for lumbar radiculopathy. Her last visit being 12/03/2024.? 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 The patient has been on glimepiride 4 mg twice daily and metformin 1000 mg twice daily. There was a period in September when she was without medication for a month, which may have contributed to her elevated A1c of 11.4%. The patient reports right leg pain that worsens upon standing, leading to tripping. She has been seen in the ER multiple times and was diagnosed with sciatica and scoliosis. Physical therapy was recommended in [place], but she was unable to attend due to relocation. [facility] Medical History Hernia COVID-19 delivery delivered High cholesterol Diabetes Surgical History Previous section Family History Other Diabetes Social History Household Members: Family Housing: Apartment Are you a primary career and technology education teacher to a significant other at home: No Do you presently have visiting nurse or other home services: No Alcohol intake: never Patient Tobacco Use Status: Never used Tobacco e-Cigarette/Vaping Use: Never Used service: No Current occupational status: unemployed Cognitive needs: No Hearing needs: No Vision needs: No Female Reproductive History Menstrual control method: none Total pregnancies: 4 History of abnormal pap smear: No Questionnaire PHQ-9 Over the last 2 weeks, how often have you been bothered by any of the following problems? 1. Little interest or pleasure in doing things: not at all 2. Feeling down, depressed, or hopeless: several days 3. Trouble falling or staying asleep, or sleeping too much: more than half the days 4. Feeling tired or having little energy: several days 5. Poor appetite or overeating: several days 6. Feeling bad about yourself - or that you are a failure or have let yourself or your family down: several days 7. Trouble concentrating on things, such as reading the newspaper or watching television: not at all 8. Moving or speaking so slowly that other people could have noticed. Or the opposite - being so fidgety or restless that you have been moving around a lot more than usual: not at all 9. Thoughts that you would be better off or of hurting yourself in some way: not at all Total score: 6 Depression Screening Interpretation: Positive (referral to counseling ) Depression Screening Done: Yes 26426 - PHQ-9 Billing: Yes Source: Developed by Drs. William Pineda, Cathy Underwood, Ziggy Kraft and colleagues, with an educational elmira from [employer]. Thrive Questionnaire Date Thrive assessed: 12/31/24 I am a: Patient What is your living situation today?: I do not have a steady places to live Within the past 12 months, did the food you bought not last and you didn't have the money to get more?: Sometimes True Within the past 12 months, did you worry whether your food would run out before you got money to buy more?: Sometimes True Do you have trouble paying for medicines?: No Do you have trouble getting transportation to medical appointments?: No Do you have trouble paying your heating and electricity bill?: No Do you have trouble taking care of your child, family member or friend?: No Do you have trouble with day-to-day activities such as bathing, preparing meals, shopping, managing finances, etc.?: No Are you currently unemployed and looking for a job?: No Are you interested in more education?: I choose not to answer this question Please select the resources that you would like help with: None Currently or been in a relationship where the following occur: I choose not to answer THRIVE Score: 3 AUDIT C Alcohol Use Questionnaire (AUDIT-C) 1. How often do you have a drink containing alcohol?: Monthly or less 2. How many drinks containing alcohol do you have on a typical day when you are drinking?: 5 or 6 3. How often do you have six or more drinks on one occasion?: Monthly Total Score: 5 Score Reviewed/Action Taken: Yes CANDY-7 AMB Questionnaire CANDY-7 Date CANDY - 7 assessed: 12/31/24 Feeling nervous, anxious, or on edge: 1 = Several days Not being able to stop or control worryin = Several days Worrying too much about different things: 1 = Several days Trouble relaxin = Several days Being so restless that it is hard to sit still: 2 = More than half the days Becoming easily annoyed or irritable: 1 = Several days Feeling afraid as if something awful might happen: 0 = Not at all Total CANDY-7 score (0-4 normal; 5-9 mild; 10-14 moderate; 15-21 severe): 7 Source: Developed by Drs. William Pineda, Cathy Underwood, Ziggy Karft and colleagues, with an educational elmira from [employer]. CANDY-7 Assessment Billing CANDY-7 Assessment Tool: CANDY-7 Assessment 23800 Review of Systems Const Denies body aches, Denies chills, Denies fever(s), Denies headache(s) and Denies poor appetite Eyes Reports no additional complaints ENT Denies dizziness and Denies headache(s) Card Denies chest pain, Denies edema, Denies lightheadedness and Denies dyspnea Resp Denies dyspnea GI Denies constipation, Denies diarrhea, Denies nausea and Denies vomiting Reports no additional complaints Musc Reports as per HPI, Denies abnormal gait and Reports back pain Skin/Breast Reports system reviewed and no additional complaints, except as documented Neuro Denies abnormal gait, Denies dizziness and Denies headache(s) Psych Reports no additional complaints Physical exam (Primary Care) Vital Signs: Last Vital Signs Pulse 61 12/31/24 09:19 BP 130/70 12/31/24 09:19 Pulse Ox 98 12/31/24 09:19 Oxygen Delivery Method Room Air 12/31/24 09:19 BMI result Body Mass Index 35.1 Tobacco/Smoking Status: Tobacco use Status Tobacco use date assessed 12/31/24 12/31/24 09:19 Patient Tobacco Use Status Never used Tobacco 12/31/24 09:30 e-Cigarette/Vaping Use Never Used 12/31/24 09:30 PHQ-9: PHQ-9 Score PHQ-9: Total score 6 12/31/24 09:55 Depression Screening Interpretation: Positive (referral to counseling ) Thrive Assessment: Date of Thrive Assessment Date Thrive assessed 12/31/24 12/31/24 09:30 Currently or been in a relationship where the following occur: I choose not to answer Const General: cooperative, healthy appearing, comfortable and no acute distress Orientation/consciousness: patient oriented x3 HENMT Head: Yes normocephalic Ears: hearing grossly normal bilaterally General nose exam: Normal external nose present Eyes General: appearance normal, both eyes and all related structures Conjunctivae: conjunctivae normal Neck Neck: Yes full ROM and Yes no lymphadenopathy Resp Effort & Inspection: normal respiratory effort Auscultation: clear to auscultation bilaterally, no crackles, no rales, no rhonchi and no wheezes Cardio Rate: regular rate Rhythm: regular rhythm Back/Spine/Pelvis Other: no tenderness to palpation of spine, paraspinal muscles or left hip. + SLR right side Skin General skin exam: no rashes or lesions noted Neuro General: patient oriented x3 Gait exam (Neuro): Normal gait present Extrem General: Yes normal to inspection, Yes full ROM and No edema Psych Affect: normal affect Attitude: cooperative Insight: Good insight present (Psych) Judgement: Good judgement present (Psych) Results AMB Hemoglobin A1c AMB Hemoglobin A1c 11.1 % Last Edit by Harvey Matt MA on 12/31/24 09:56 Results Reviewed Results Reviewed: Laboratory Last Values Hgb A1c (Clinic) 11.1 % (4.0-6.0) H 12/31/24 09:45 Coding Level of Care Code New Pt Level 4 (09254) Diagnoses High cholesterol E78.00 Diabetes E11.9 Depression F32.A Low back pain with radiation M54.50 GERD (gastroesophageal reflux disease) K21.9 Additional Codes CANDY-7 Assessment Billing - CANDY-7 Assessment Tool: CANDY-7 Assessment 41225 ([id number]) PHQ-9 - 70427 - PHQ-9 Billing: Yes ([id number]) Assessment & Plan Assessment & Plan (1) High cholesterol: Code(s): E78.00 - Pure hypercholesterolemia, unspecified Category: Medical Plan: Avoid foods that are high in cholesterol such as red meat, fried foods, eggs and baked goods. Triglyceride goal of less than 150 and LDL goal of less than 100. Ordered for updated blood work (2) Diabetes: Code(s): E11.9 - Type 2 diabetes mellitus without complications Category: Medical Plan: Decrease the amount of carbohydrates such as pasta, bread, rice, and potatoes and limit the amount of sweets. Although fruits are generally healthy they should be eaten in moderation as they are still high in sugar. Hemoglobin A1c goal of less than 7%. A1c in the clinic today over 11% plan to start on Mounjaro weekly and continue with glimepiride 4 mg b.i.d. in the farming and 1000 mg b.i.d.. I do believe the majority of the a good option for her over more oral medications as she does have poor compliance. (3) Depression: Code(s): F32.A - Depression, unspecified Category: Medical Plan: Patient reporting mild depression declining medical management at this time. Referral was placed to counseling (4) Low back pain with radiation: Comment: R leg Code(s): M54.50 - Low back pain, unspecified Category: Medical Plan: For the low back pain plan to give cyclobenzaprine at bedtime for pain she may also use Tylenol and ibuprofen as needed. Referral was placed to physical therapy and consider referral to Orthopedics. (5) GERD (gastroesophageal reflux disease): Code(s): K21.9 - Gastro-esophageal reflux disease without esophagitis Category: Medical Plan: Avoid trigger foods such as citrus, tomato products, soda, caffeine, spicy foods and other foods that may be irritating to your stomach. Avoid laying flat 3-4 hours after eating and elevate the head of the bed 30 degrees to prevent acid from moving into the esophagus. Continue on Omeprazole Plan The patient will begin a weekly injection of Mounjaro to address her diabetes mellitus, with her A1c currently at 11.4%. Physical therapy has been recommended for her sciatica, and a referral has been made to start this treatment. A muscle relaxant will be used at night to help manage her back pain. A referral to counseling services has been made to explore the positive depression screening, despite the patient's denial of symptoms. Fasting blood work, including cholesterol levels, has been ordered to assess her overall health. This note was constructed using voice recognition software. While every effort has been made to ensure accuracy and machine repair person, still areas may have been included sometimes these areas may affect the content or meeting of the given symptoms. Total time spent caring for the patient today was 30 minutes. This includes time spent before the visit reviewing the chart, time spent during the visit, and time spent after the visit and documentation. Patient was informed and verbally consented to the use of an ambient scribe for clinic note documentation during this visit. Orders: Orders Vitamin B12 and Folate 12/31/24 Z13.21 - Encounter for screening for nutritional disorder Comprehensive Met. Panel 12/31/24 E11.9 - Type 2 diabetes mellitus without complications, Z00.00 - Encounter for general adult medical examination without abnormal findings PT Evaluation and Treatment 12/31/24 M54.50 - Low back pain, unspecified AMB Hemoglobin A1c 12/31/24 E11.9 - Type 2 diabetes mellitus without complications Lipid Panel 12/31/24 E78.00 - Pure hypercholesterolemia, unspecified Vitamin D 25-OH Total 12/31/24 Z13.21 - Encounter for screening for nutritional disorder TSH reflex Free T4 12/31/24 Z13.29 - Encounter for screening for other suspected endocrine disorder Complete Blood Count Auto Diff 12/31/24 E11.9 - Type 2 diabetes mellitus without complications, Z00.00 - Encounter for general adult medical examination without abnormal findings Referrals Counseling Referral F32.A - Depression, unspecified Medications: New omeprazole 20 mg PO DAILY 90 caps 1RF cyclobenzaprine 5 mg PO BEDTIME 30 tabs 0RF tirzepatide (Mounjaro) for 4 weeks 2.5 mg (0.5 mL) subcut QWEEK 2 mL 0RF Refilled glimepiride administer with breakfast 4 mg PO BID 60 tabs 2RF metformin 1,000 mg PO BID 60 tabs 2RF Discontinued ketorolac maximum total duration of 5 days from all oral, intranasal, or parenteral formulations. The patient received an IV dose of Toradol here in the emergency room Discontinued Reason: Patient no longer taking 10 mg PO Q6H PRN 20 tabs 0RF pain methocarbamol Discontinued Reason: Patient no longer taking 1,500 mg (2 x 750 mg) PO Q8H PRN 20 tabs 0RF pain, moderate metoclopramide HCl Discontinued Reason: Patient no longer taking 10 mg PO Q6H PRN 12 tabs 0RF nausea and vomiting
[2024-12-31 09:19] VITALS: BP 130/70; PULSE 61; O2SAT 98; BMI 35.1
--- OUTSIDE RECORDS SUMMARY | 2024-12-31 09:42 | XMS_ITS ---
Author Name [facility] Organization Unknown Care Team Organization Name Specialty Phone Email Start Date End Da te [facility]ie [facility] 03/27/2022
--- OUTSIDE RECORDS SUMMARY | 2024-12-31 09:42 | XMS_ITS | Patient Health Record ---
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 Role Phone HALEY STONEJoshua Primary Care Provider [phone] ARSEN FUNG Unavailable [phone] ZULEMA JOHANSEN Unavailable [phone] Allergies No Known Allergies Results Component Value Reference Range Notes Thin prep (Not yet reviewed by provider) Interpretation: Performing Lab: Notes/Report: Pap Smear NILM Reason For Referral No Information Medications Medication SIG (Take, Route, Frequency, Duration) Notes Start Date End Date Status Omeprazole 40 MG Capsule Delayed Release 1 capsule 30 minutes before morning meal Orally Once a day; Duration: 30 days 07/14/2021 Active Gabapentin 100 MG Capsule 1 capsule Orally Once a day; Duration: 30 days 04/17/2023 Active Tradjenta 5 MG Tablet 1 tablet Orally On ce a day; Duration: 30 days E11.65 hgbA1c 10.0 Active Lantus 100 UNIT/ML Solution 23 units in the evening Subcutaneous Once a day; Duration: 44 days Active Insulin Syringe 30G X 5/16 1 ML Miscellaneous as directed sc daily; Duration: 30 days Active metFORMIN HCl 1000 MG Tablet 1 tablet with a meal Orally TWICE A DAY; Duration: 30 days 04/16/2022 Active Glimepiride 4 MG Tablet 1 tablet with breakfast or the first main meal of the day and afternoon meal Orally TWICE A DAY; Duration: 30 days 07/14/2021 Active Lisinopril 2.5 MG Tablet 1 tablet Orally Once a day; Duration: 30 days 07/14/2021 Active Simvastatin 20 MG Tablet 1 tablet in the evening Orally Once a day; Duration: 30 day(s) 07/14/2021 Active Aspirin 81 MG Tablet Delayed Release 1 tablet Orally Once a day; Duration: 30 days 12/04/2022 Active Immunizations Vaccine Route Administration Date Status Comme nts INFLUENZA FLUARIX (317) IM Intramuscular 04/17/2023 Admini stered Social History Tobacco Use: Social History Observation Description Date Details (start date - stop date) Never Smoker NA - NA Sex Assigned At : Social History Observation Description Sex Assigned At Female Social History Sexual History: Social Info Question Answer Notes Sexual History Had sex in the past 12 months (vaginal, oral, or anal)? Yes Drugs/Alcohol Social Info Question Answer Notes Alcohol Screen (Audit-C) Did you have a drink containing alcohol in the past year? No Points 0 Interpretation Negative Drugs Have you used drugs other than those for medical reasons in the past 12 months? No SBIRT (2018 Edition) Patient refused/declined SBIRT sc reening at this time? No 1. How often do you have a drink containing alcohol? Never 3. How often do you have five or more drinks on one occasion? Never SCORE 0 Interpretation Negative How many times in the past year have you used an illegal drug or used a prescription medication for non-medical reasons? 0 Total Count 0 Interpretation Negative Caffeine Intake: 3-4 cups per day Tobacco Use: Social Info Question Answer Notes Tobacco Use/Smoking Tobacco use: nonsmoker Problems Problem Type SNOMED Code ICD Code Onset Dates Problem Status W/U Status Risk Notes Problem Polyneuropathy due to type 2 diabetes mellitus (140884506) Type 2 diabetes mellitus with diabetic polyneuropathy (E11.42) Active confirmed Problem Hyperglycemia due to type 2 diabetes mellitus (373801332469235) Type 2 diabetes mellitus with hyperglycemia (E11.65) Active confirmed Problem Type II diabetes mellitus without complication (598028420) Type 2 diabetes mellitus without complications (E11.9) Active confirmed Problem Obesity (954363379) Other obesit y (E66.8) Active confirmed Problem Hyperlipidemia (89895387) Hyperlipidemia, unspecified (E78.5) Active confirmed Problem Gastro-esophageal reflux disease without esophagitis (769161042) Gastro-esophageal reflux disease without esophagitis (K21.9) Active confirmed Problem Gastroduodenitis (985557042) Gastritis, unspecified, without bleeding (K29.70) Active confirmed Problem Long-term current use of insulin (981117010) medical terminologist (current) use of insulin (Z79.4) Active confirmed Problem Mild non-proliferative diabetic retinopathy (916858433) Diabetes mellitus due to underlying condition with mild nonproliferative diabetic retinopathy without macular edema, bilateral (E08.3293) Active confirmed Problem Macular edema and retinopathy due to type 2 diabetes mellitus (disorder) (51485417521055) Type 2 diabetes mellitus with proliferative diabetic retinopathy with macular edema, 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) Active confirmed Problem Other specified diabetes mellitus with proliferative diabetic retinopathy with macular edema, right eye (E13.3511) Active confirmed Problem Obese class II (461952895904897) Body mass index [BMI] 35.0-35.9, adult (Z68.35) Active confirmed Problem Body mass index 35.00 to 39.99 (982487266316374) Body mass index [BMI] 36.0-36.9, adult (Z68.36) Active confirmed Problem Pain in female genitalia on intercourse (37722789) Dyspareunia in female (N94.10) Active confirmed Problem Type II diabetes mellitus without complication (868390164) Controlled type 2 diabetes mellitus without complication, [...] Monica Campos 01/29/2024 10:43:21 AM BOT > Weight-kg 91.63 kg 01/29/2024 SE RECIBE PACIE NTE DE ALERTA, ORIENTADO EN TIEMPO LUGAR Y PERSONA. REFIERE PAP . SE COMPLETA HISTORIAL MEDICO Y SE JENNIFER SIGNOS VITALES ADJUNTADOS EN TABLA PARA REFERENCIA. PACIENTE EN JOSE DE ESPERA PARA EVALUACION MEDICA. Christy Camposlivanlis 01/29/2024 10:43:21 AM BOT > Height 63 [...] Monica Campos 01/29/2024 10:43:21 AM BOT > Weight 202.0 lbs 01/29/2024 SE RECIBE PACIE NTE DE ALERTA, ORIENTADO EN TIEMPO LUGAR Y PERSONA. REFIERE PAP . SE COMPLETA HISTORIAL MEDICO Y SE JENNIFER SIGNOS VITALES ADJUNTADOS EN TABLA PARA REFERENCIA. PACIENTE EN JOSE DE ESPERA PARA EVALUACION MEDICA. Monica Campos 01/29/2024 10:43:21 AM BOT > BMI 35.78 kg/m2 01/29/2024 SE RECIBE PACIE NTE DE ALERTA, ORIENTADO EN TIEMPO LUGAR Y PERSONA. REFIERE PAP . SE COMPLETA HISTORIAL MEDICO Y SE JENNIFER SIGNOS VITALES ADJUNTADOS EN TABLA PARA REFERENCIA. PACIENTE EN JOSE DE ESPERA PARA EVALUACION MEDICA. Saumya Camposlis 01/29/2024 10:43:21 AM BOT > Encounters Encounter Location Date Provider Diagnosis [facility] [address] [place] [address] 01/29/2024 ZULEMA VALDES Encounter for cervical Pap smear with pelvic exam Z01.419 [facility] [address] [place] [id number] 02/07/2024 ZULEMA VALDES Counseling and coordination of [...] 12/04/2022 Urinalysis, Complete 09/19/2021 Cortisol 09/19/2021 TSH 12/04/2022 TSH 07/10/2022 CBC With Differential/Platelet 3 CBC With Differential/Platelet 2 CBC With Differential/Platelet 3 Occult Blood, Stool, Guaiac 09/19/2021 Vitamin D, 25-Hydroxy 09/19/2021 Vitamin D, 25-Hydroxy 03/28/2022 Hgb A1c with MBG Estimation 09/19/2021 Microalbumin, 24 hr Urine 03/28/2022 Occult Blood, Fecal, IA 12/04/2022 TSH+Free T4 09/19/2021 Lipid Panel 12/04/2022 Lipid Panel 07/10/2022 Lipid Panel 09/19/2021 Comp. Metabolic Panel (14) 07/10/2022 Comp. Metabolic Panel (14) 12/04/2022 Comp. Metabolic Panel (14) 08/16/2021 Comp. Metabolic Panel (14) 09/19/2021 HIV 12/04/2022 MAMMOGRAM, SCREENING 03/28/2022 Urine Culture and Sensitivity 04/16/2022 Urinalysis 07/10/2022 Urinalysis 12/04/2022 Ultrasound : Transvaginal 03/28/2022 Mammogram (Bilateral), Diagnostic comput er aided 04/16/2022 Thin prep 01/29/2024 COVID - 19 SARS ANTIGEN LE 04/16/2022 MICROALBUMIN RANDOM 07/10/2022 MICROALBUMIN RANDOM 12/04/2022 Insurance Providers Payer Name Payer Address Payer Phone Subscriber Number Group Number Insured Name Patient Relationship to Insured Coverage Start Date Coverage End Date [employer] [address] [address] [place], [place] [id number] [phone] [id number] AISSATOU GALLEGOS Self - patient is the insured 3 8 Medical (General) History Medical History History ICD Code DIABETES NEUROPATIA COLESTEROL Surgical History Surgery Date(Month/Year) CESAREA (3) HERNIA
== END 2024-12-31 10:20 | disposition home or self-care (01) ==
DX: E11.9 Type 2 diabetes mellitus without complications (principal)

== ENCOUNTER → 2024-12-31 09:16 | Outpatient (BNVA) | payer OTHER, SELFPAY | DX: M54.16 Radiculopathy, lumbar region (principal); E11.9 Type 2 diabetes mellitus without complications; E78.00 Pure hypercholesterolemia, unspecified; F32.A Depression, unspecified; K21.9 Gastro-esophageal reflux disease without esophagitis; Z79.84 Long term (current) use of oral hypoglycemic drugs | CPT/HCPCS: 83036; 96127; 99202 ==

== ENCOUNTER 2025-03-03 10:00 | Outpatient (RCR) | payer OTHER, SELFPAY ==
--- NOTE | 2025-01-29 11:05 | MHC.PT.EP ---
[facility] [place] [facility] [place] [facility] [place] [facility] [address] Rosalia Franklin [address] [phone] F: [phone] F: [phone] F: [phone] F: [phone] Physical Therapy Plan of Care Date of Evaluation: 01/29/25 Date of Surgery: N/A Diagnosis: low back pain with radiation (RL) Assessment: pt is a 44 y/o female presenting to physical therapy w/ referring diagnosis of low back pain with radiation. Impairments include pain, decreased range of motion, decreased strength, impaired functional mobility, impaired postural awareness, and altered ambulation mechanics. pt is a good candidate for skilled PT due to age, potential remediation of impairments, typical disease/condition progression and prognosis, comorbidities, and motivation. pt would benefit from skilled PT intervention to provide a tailored strengthening and stretching exercise program, functional training, gait training, postural re-training, neuromuscular re-education, modalities as needed for pain, equipment safety demonstration. Frequency and Duration: The patient will be seen 2x/wk for 4 wks Short Term Goals: pt will be I w/ HEP to promote self-management of condition. pt will demo proper sitting posture w/ lumbar roll to promote neutral spine w/ seated ADLs/driving. Facsimile Machine Operator Goals: pt will report a statistically significant improvement in self-reported outcome measure, Leon, to promote return to PLOF. pt will demo proper lifting mechanics for objects from floor to waist height to promote return to functional lifting. Treatment Plan: Modalities to reduce pain, spasms and effusion. Manual therapy to restore motion and function. Therapeutic exercise to improve strength and flexibility. Neuromuscular re-education for posture and balance. Therapeutic activities to return to functional activities of daily living. Electronically signed by: Suni Guy PT, DPT Please sign and return to therapist. Thank you for your referral.
--- NOTE | 2025-03-24 09:26 | MHC.PT.DC ---
[facility] [place] Office [place] Office [place] Office [address] Rosalia Franklin [address] [phone] F: [phone] F: [phone] F: [phone] F: [phone] Physical Therapy Discharge Report Diagnosis: low back pain with radiation (RL) Date of Surgery: N/A Date of Evaluation: 01/29/25 Date of Discharge: 03/24/25 Treatments to Date: 9 Cancellations to Date: 1 No Shows to Date: 0 Discharge Status: Improved Function Independent with HEP Recommend MD Follow-up Discharge Summary: The patient, when compliant with her home exercise program, was reporting less intense and less radicular pain. She noticed positive benefits to mechanical lumbar traction, as well. She was encouraged to continue with her home exercise program and to follow-up with her referring provider to determine if there is a need for further testing/imaging to provide other opportunities for pain management. Electronically signed by: Suni Guy PT, DPT Please sign and return to therapist. Thank you for your referral.
== END 2025-03-24 09:26 | disposition home or self-care (01) ==
LOC: HO.PT 10:00
DX: M54.50 Low back pain, unspecified (principal)
CPT/HCPCS: 97012; 97110; 97112; 97161; 97530